=== PATIENT | male | born 1955 | race Caucasian/White ===

== ENCOUNTER 2018-05-29 05:57 | Inpatient (IN) | payer OTHER ==
[2018-05-29 06:56] LABS: BASO # 0.1 10^3/uL (0.0-0.2); BASO % 0.7 % (0.0-1.0); EOS # 0.4 10^3/uL (0.0-0.50); EOS % 4.9 % (0.0-3.0); HEMATOCRIT 46.7 % (42.0-52.0); IMMATURE GRANULOCYTE % 0.5 % (0-3.0); LYMPH # 2.2 10^3/uL (1.5-4.5); LYMPH % 25.9 % (24.0-44.0); MEAN CORPUSCULAR HEMOGLOBIN 30.7 pg (27.0-33.0); MEAN CORPUSCULAR HGB CONC 34.3 g/dl (32.0-36.5); MEAN CORPUSCULAR VOLUME 89.6 fl (80.0-96.0); MONO # 0.5 10^3/uL (0.0-0.8); MONO % 5.3 % (0.0-5.0); NEUTROPHILS # 5.4 10^3/uL (1.8-7.7); NEUTROPHILS % 62.7 % (36.0-66.0); PLATELET COUNT, AUTOMATED 359 10^3/uL (150-450); RED BLOOD COUNT 5.21 10^6/uL (4.30-6.10); RED CELL DISTRIBUTION WIDTH 12.4 % (11.5-14.5); WHITE BLOOD COUNT 8.7 10^3/uL (4.0-10.0)
[2018-05-29 07:08] LABS: INR 0.92; PARTIAL THROMBOPLASTIN TIME 29.7 SECONDS (25.4-37.6); PROTHROMBIN TIME 12.4 SECONDS (12.1-14.4)
[2018-05-29 07:26] LABS: ALBUMIN/GLOBULIN RATIO 1.29 (1.00-1.93); ALKALINE PHOSPHATASE 67 U/L (45-117); ALT/SGPT 21 U/L (12-78); ANION GAP 9 MEQ/L (8-16); AST/SGOT 18 U/L (7-37); BILIRUBIN,DIRECT 0.1 MG/DL (0.0-0.2); BILIRUBIN,TOTAL 0.4 MG/DL (0.2-1.0); BLOOD UREA NITROGEN 17 MG/DL (7-18); CALCIUM LEVEL 9.7 MG/DL (8.8-10.2); CARBON DIOXIDE LEVEL 28 MEQ/L (21-32); CHLORIDE LEVEL 104 MEQ/L (98-107); CPK CREATINE PHOSPHOKINASE 82 U/L (39-308); CREATININE FOR GFR 0.82 MG/DL (0.70-1.30); GLOMERULAR FILTRATION RATE > 60.0 (>49); GLUCOSE, FASTING 103 MG/DL (70-100); LIPASE 173 U/L (73-393); MB/CK RELATIVE INDEX 1.59 (< OR =4); POTASSIUM SERUM 4.6 MEQ/L (3.5-5.1); SODIUM LEVEL 141 MEQ/L (136-145); TOTAL PROTEIN 7.1 GM/DL (6.4-8.2); TROPONIN I 0.02 NG/ML (< 0.10)
[2018-05-29] MEDS: KETOROLAC 30 MG/ML VIAL (J1885) IV (07:33)
[2018-05-29] MEDS ORDERED: ISOVUE-370 76% 100ML VIAL (Q9967) As Ordered (07:49)
[2018-05-29] MEDS ORDERED: ONDANSETRON 4MG/2ML VIAL (J2405) IV ×2 (09:15→19:00)
[2018-05-29] MEDS: NS 1,000 ML IV (10:36)
[2018-05-29] MEDS: VANCOMYCIN HCL 1,000 MG, VIAL MATE ADAPTER 1 EACH in D5W 250 ML IV (15:07)
[2018-05-29] MEDS ORDERED: fentaNYL 100 MCG/2 ML INJECTION (J3010) As Ordered (15:48)
[2018-05-29] MEDS ORDERED: PROPOFOL 200 MG/20 ML VIAL As Ordered ×3 (15:48→18:12)
[2018-05-29] MEDS ORDERED: LIDOCAINE 2% INJ 100 MG/5 ML SDV (FOR ANES.) As Ordered (15:48)
[2018-05-29] MEDS ORDERED: MIDAZOLAM INJ 2 MG/2 ML VIAL (J2250) As Ordered (15:49)
[2018-05-29] MEDS: ISOVUE-300 61% 50ML VIAL (Q9967) As Ordered (16:35)
[2018-05-29] MEDS: LIDOCAINE 1% SDV INJ 30 ML VIAL As Ordered (16:50)
[2018-05-29] MEDS: BACITRACIN OINT 30GM As Ordered (18:14)
[2018-05-29] MEDS ORDERED: KETOROLAC 60 MG/2 ML VIAL (J1885) As Ordered (18:18)
[2018-05-29] MEDS ORDERED: ONDANSETRON 4MG/2ML VIAL (J2405) As Ordered (18:18)
[2018-05-29] MEDS ORDERED: fentaNYL 100 MCG/2 ML INJECTION (J3010) IV (19:00)
[2018-05-29] MEDS: LR 1,000 ML IV (19:00)
[2018-05-29] MEDS ORDERED: PERCOCET 5MG/325MG TAB PO (19:00)
[2018-05-29] MEDS: ASCORBIC ACID 250 MG TAB PO (19:44)
[2018-05-29] MEDS ORDERED: SLF 3 ML SYR IV (20:00)
[2018-05-29] MEDS: SLF 3 ML SYR IV (20:34)
[2018-05-30] MEDS: ACETAMINOPHEN TAB 650MG DOSE (2X325MG) PO (04:55)
[2018-05-30] MEDS: SLF 3 ML SYR IV ×2 (04:55→13:55)
[2018-05-30] MEDS: ASCORBIC ACID 250 MG TAB PO (08:21)
== END 2018-05-30 19:40 | disposition home or self-care (01) | DRG 242 ==
LOC: M ED 05:57 → M ED INP 09:02 → M ICU 13:17
PROC: 0JH636Z Insertion of Pacemaker, Dual Chamber into Chest Subcutaneous Tissue and Fascia, Percutaneous Approach (ICD-10-PCS; principal; 2018-05-29 16:00)
PROC: 02H63JZ Insertion of Pacemaker Lead into Right Atrium, Percutaneous Approach (ICD-10-PCS; 2018-05-29 16:00)
PROC: 02HK3JZ Insertion of Pacemaker Lead into Right Ventricle, Percutaneous Approach (ICD-10-PCS; 2018-05-29 16:00)
DX: I49.5 Sick sinus syndrome (principal); I46.9 Cardiac arrest, cause unspecified; Z87.891 Personal history of nicotine dependence; R55 Syncope and collapse; E78.00 Pure hypercholesterolemia, unspecified

== ENCOUNTER 2018-10-04 15:54 | Emergency (ER) | payer OTHER ==
[~2018-10-04] VITALS: Ht 175.3 cm; Wt 70.5 kg
[~2018-10-04 15:54] MED LIST changes: -ACET500T15 PO; -VITMTA PO
[2018-10-04] MEDS ORDERED: NS 1,000 ML IV ONE (16:45)
[2018-10-04] MEDS ORDERED: ISOVUE-370 76% 100ML VIAL (Q9967) As Ordered ONE (16:47)
[2018-10-04 17:51] LABS: HEMATOCRIT 39.6 % (42.0-52.0); MEAN CORPUSCULAR HEMOGLOBIN 30.2 pg (27.0-33.0); MEAN CORPUSCULAR HGB CONC 35.4 g/dl (32.0-36.5); MEAN CORPUSCULAR VOLUME 85.3 fl (80.0-96.0); PLATELET COUNT, AUTOMATED 110 10^3/uL (150-450); RED BLOOD COUNT 4.64 10^6/uL (4.30-6.10)
[2018-10-04 18:05] LABS: INR 1.18; PROTHROMBIN TIME 15.2 SECONDS (12.1-14.4)
[2018-10-04 18:15] LABS: ATYPICAL LYMPH 1 % (0-5); LYMPHOCYTES 2 % (16-52); METAMYELOCYTES 2 % (0-0); MONOCYTES 5 % (0-8); NEUTROPHILS 64 % (35-75); PLATELET ESTIMATE DECREASED (NORMAL); TOXIC GRANULATION 2+
[2018-10-04 18:17] LABS: TOXIC VACUOLATION 2+
[2018-10-04 18:20] LABS: AMYLASE 39 U/L (25-115); BLOOD UREA NITROGEN 23 MG/DL (7-18); CALCIUM LEVEL 8.3 MG/DL (8.8-10.2); CARBON DIOXIDE LEVEL 21 MEQ/L (21-32); CHLORIDE LEVEL 98 MEQ/L (98-107); CREATININE FOR GFR 1.11 MG/DL (0.70-1.30); GLOMERULAR FILTRATION RATE > 60.0 (>49); GLUCOSE, FASTING 128 MG/DL (70-100); POTASSIUM SERUM 4.1 MEQ/L (3.5-5.1); SODIUM LEVEL 131 MEQ/L (136-145)
--- NOTE | 2018-10-04 18:59 | REP ---
Clinical: Abdominal pain with elevated liver function tests. Technique: Axial contrast enhanced images from the lung bases to the pubic symphysis using 100 ml Isovue 370 intravenous contrast material with delayed images of the abdomen as well as coronal and sagittal re-formations. Findings: The sigmoid colon demonstrates mucosal thickening with diffuse diverticulosis and surrounding inflammatory stranding and mesenteric edema raising the possibility of acute sigmoid diverticulitis and correlation is recommended. Outpatient colonoscopy may be warranted as well to exclude further pathology including well malignancy. The liver demonstrates a somewhat heterogeneous enhancement pattern suggesting underlying hepatocellular disease without discrete, focal hepatic lesion identified. Spleen, pancreas, gallbladder, bilateral adrenal glands and kidneys are normal. There is no evidence for bowel obstruction. Pelvis demonstrates normal bladder and moderately prominent prostate/seminal vesicles. No ascites. No free air. No obvious adenopathy. Atherosclerotic changes of the aorta and vasculature without aneurysm or dissection. Musculoskeletal structures demonstrate degenerative changes. Lung bases are clear. Small fat containing periumbilical and left inguinal hernias noted. Impression: 1. Mucosal thickening of the sigmoid colon with diffuse diverticulosis and surrounding inflammatory stranding as well as mesenteric edema. Differential diagnosis includes diverticulitis and infectious/inflammatory colitis. Outpatient colonoscopy may be warranted to exclude further pathology including malignancy. 2. A subtle heterogeneous hepatic enhancement pattern raises the possibility of underlying hepatocellular disease without focal hepatic lesion identified. 3. Moderately enlarged prostate gland. 4. Small fat containing left inguinal hernia and 1.5 cm fat containing periumbilical hernia. 5. Atherosclerotic changes to the vasculature and arthritic changes to the lumbosacral spine and pelvis. Electronically Signed by Geovani Harvey MD 10/04/2018 06:50 P
[2018-10-04 19:28] VITALS: BP 119/71
[2018-10-06 09:38] LABS: HEPATITIS B SURFACE ANTIGEN NEGATIVE (NEGATIVE)
[2018-10-06 10:07] LABS: HEPATITIS B CORE ANTIBODY IGM NEGATIVE (NEGATIVE)
[2018-10-06 10:08] LABS: HEPATITIS A ANTIBODY IGM NEGATIVE (NEGATIVE)
== END 2018-10-04 19:37 | disposition home or self-care (01) ==
LOC: M ED 15:54
DX: K75.9 Inflammatory liver disease, unspecified (principal); I51.9 Heart disease, unspecified; Z95.0 Presence of cardiac pacemaker; Z87.891 Personal history of nicotine dependence; Z79.899 Other long term (current) drug therapy
CPT/HCPCS: 74177; 80048; 82150; 85025; 85610; 86705; 86709; 86803; 87340; 96360; 96361; 99284; Q9967

== ENCOUNTER → 2018-10-04 | Outpatient (CLI) | payer OTHER ==
[~2018-10-04] MED LIST: ACET1TAB55 PO; ACET500T15 PO; ATOR1TAB21 PO; VITMTA PO
--- NOTE | 2018-10-04 12:46 | REP ---
Clinical: Abdominal pain. Technique: Two supine views of the abdomen and pelvis. Findings: Bowel gas pattern is nonspecific and without obstruction or perforation. No organomegaly. No abnormal calcifications. Skeletal structures demonstrate age-related degenerative changes and mild chronic dextroconvex scoliosis. Impression: Nonspecific abdominal radiographs. Electronically Signed by Geovani Harvey MD 10/04/2018 12:38 P
[2018-10-04 13:45] LABS: HEMOGLOBIN 14.5 g/dl (13.5-17.5); MEAN CORPUSCULAR HEMOGLOBIN 30.1 pg (27.0-33.0); MEAN CORPUSCULAR HGB CONC 34.5 g/dl (32.0-36.5); MEAN CORPUSCULAR VOLUME 87.3 fl (80.0-96.0); PLATELET COUNT, AUTOMATED 128 10^3/uL (150-450); RED BLOOD COUNT 4.81 10^6/uL (4.30-6.10); WHITE BLOOD COUNT 12.8 10^3/uL (4.0-10.0)
[2018-10-04 14:09] LABS: BILIRUBIN,TOTAL 3.3 MG/DL (0.2-1.0); CALCIUM LEVEL 8.4 MG/DL (8.8-10.2); CREATININE FOR GFR 1.39 MG/DL (0.70-1.30); GLOMERULAR FILTRATION RATE 55.1 (>49); POTASSIUM SERUM 3.6 MEQ/L (3.5-5.1)
[2018-10-04 14:17] LABS: ATYPICAL LYMPH 1 % (0-5); LYMPHOCYTES 1 % (16-52); METAMYELOCYTES 2 % (0-0); MONOCYTES 5 % (0-8); NEUTROPHILS 67 % (35-75); PLATELET ESTIMATE DECREASED (NORMAL)
[2018-10-04 14:18] LABS: DOHLE BODIES 1+; TOXIC GRANULATION 1+; TOXIC VACUOLATION 2+
[2018-10-06 08:32] LABS: ERYTHROCYTE SEDIMENTATION RATE 26 mm/hr (0-20)
== END ==
LOC: M WUC 12:07
PROVIDERS: ATTEND Physician Assistant
DX: R10.84 Generalized abdominal pain (principal)

== ENCOUNTER 2018-10-06 14:36 | Inpatient (IN) | payer OTHER ==
[~2018-10-06] VITALS: Ht 175.3 cm; Wt 70.5 kg
[~2018-10-06 14:36] MED LIST changes: -ACET500T15 PO; -CIPROFLOXACIN 400 MG in APPROPRIATE DILUENT 1 EA IV SCH; -D5W/0.9% SODIUM CHLORIDE 1,000 ML IV SCH; -NS 1,000 ML IV SCH; -VITMTA PO; -metroNIDAZOLE 500 MG in APPROPRIATE DILUENT 1 EA IV SCH
[2018-10-06] MEDS ORDERED: NS 1,000 ML IV ONE (15:45)
[2018-10-06 16:04] LABS: BASO % 0.2 % (0.0-1.0); EOS % 0.1 % (0.0-3.0); HEMATOCRIT 36.4 % (42.0-52.0); HEMOGLOBIN 12.8 g/dl (13.5-17.5); LYMPH # 0.9 10^3/uL (1.5-4.5); LYMPH % 6.6 % (24.0-44.0); MEAN CORPUSCULAR HEMOGLOBIN 29.8 pg (27.0-33.0); MEAN CORPUSCULAR HGB CONC 35.2 g/dl (32.0-36.5); MEAN CORPUSCULAR VOLUME 84.8 fl (80.0-96.0); MONO # 1.2 10^3/uL (0.0-0.8); MONO % 9.6 % (0.0-5.0); NEUTROPHILS # 10.6 10^3/uL (1.8-7.7); NEUTROPHILS % 82.1 % (36.0-66.0); RED BLOOD COUNT 4.29 10^6/uL (4.30-6.10); WHITE BLOOD COUNT 12.9 10^3/uL (4.0-10.0)
[2018-10-06 16:14] LABS: INR 1.04; PROTHROMBIN TIME 13.7 SECONDS (12.1-14.4)
[2018-10-06 16:15] LABS: PARTIAL THROMBOPLASTIN TIME 35.4 SECONDS (25.4-37.6)
[2018-10-06 16:25] LABS: PLATELET COUNT, AUTOMATED 77 10^3/uL (150-450)
[2018-10-06 16:26] LABS: ALBUMIN 2.5 GM/DL (3.2-5.2); ALT/SGPT 112 U/L (12-78); BILIRUBIN,DIRECT 1.8 MG/DL (0.0-0.2); BILIRUBIN,TOTAL 2.3 MG/DL (0.2-1.0); BLOOD UREA NITROGEN 13 MG/DL (7-18); CALCIUM LEVEL 7.9 MG/DL (8.8-10.2); CARBON DIOXIDE LEVEL 27 MEQ/L (21-32); CHLORIDE LEVEL 92 MEQ/L (98-107); CREATININE FOR GFR 0.81 MG/DL (0.70-1.30); GLOMERULAR FILTRATION RATE > 60.0 (>49); GLUCOSE, FASTING 116 MG/DL (70-100); POTASSIUM SERUM 3.4 MEQ/L (3.5-5.1); SODIUM LEVEL 129 MEQ/L (136-145); TOTAL PROTEIN 5.6 GM/DL (6.4-8.2)
[2018-10-06] MEDS ORDERED: ACETAMINOPHEN 325 MG TAB PO ONE (17:15)
[2018-10-06] MEDS: GASTROGRAFIN SOLUTION 30ML PO SCH ×2 (17:29→18:01)
[2018-10-06] MEDS: MORPHINE 4 MG/ML 1ML VIAL/SYRINGE (J2270) IV PRN (17:40)
[2018-10-06] MEDS ORDERED: ISOVUE-370 76% 100ML VIAL (Q9967) As Ordered ONE (18:42)
--- NOTE | 2018-10-06 19:36 | REP ---
Clinical: Abdominal pain. Technique: Axial contrast enhanced images from the lung bases to the pubic symphysis using oral (per protocol) and 100 ml Isovue 370 intravenous contrast material with coronal and sagittal re-formations. Comparison: 10/06/2018 at 12:50 p.m. and 10/04/2018 at 06:10 p.m.. Findings: Current examination again demonstrates mucosal thickening of the sigmoid colon with diffuse diverticulosis and pericolonic stranding consistent with acute diverticulitis. New findings include gas in the superior mesenteric vein at the level of the pancreas (images [id number]) with mild infiltration to the mesentery which may now represent an element of bowel infarction. No evidence for pneumoperitoneum to suggest perforation. No bowel obstruction. Liver has a subtle areas of low density suggesting heterogeneous enhancement which again may be related to portal venous gas and bowel infarction. Hepatomegaly is noted. Spleen, pancreas, gallbladder, bilateral adrenal glands and kidneys are normal. Pelvis demonstrates normal bladder. The prostate gland is enlarged. No ascites. Small fat containing inguinal hernias noted. Abdominal aorta demonstrates atherosclerotic changes without aneurysm or dissection. Musculoskeletal structures demonstrate degenerative changes. Lung bases demonstrate chronic bronchiectasis and fibroatelectatic changes. Impression: Continued evidence for sigmoid diverticulitis. Small amounts of portal venous gas are now identified in the superior mesenteric vein suggesting the possibility of associated bowel infarction and correlation is required. No free air to suggest perforation. No bowel obstruction. Electronically Signed by Geovani Harvey MD 10/06/2018 07:28 P
[2018-10-06] MEDS ORDERED: NS 1,000 ML IV SCH (20:00)
[2018-10-06] MEDS ORDERED: CIPROFLOXACIN 400 MG in APPROPRIATE DILUENT 1 EA IV ONE (20:00)
[2018-10-06] MEDS ORDERED: metroNIDAZOLE 500 MG in APPROPRIATE DILUENT 1 EA IV ONE (20:00)
[2018-10-06] MEDS ORDERED: ACET500T15 PO (20:10)
[2018-10-06] MEDS ORDERED: VITMTA PO (20:10)
[2018-10-06] MEDS ORDERED: ATOR1TAB21 PO (20:10)
[2018-10-06] MEDS ORDERED: ONDANSETRON 4MG/2ML VIAL (J2405) IV PRN (20:30)
[2018-10-06] MEDS ORDERED: ENOXAPARIN 40 MG/0.4 ML SYRINGE (J1650) SC SCH (21:00)
--- NOTE | 2018-10-06 22:15 | CR.PDOC ---
General Date of Consultation: Oct 06, 2018 Referring Provider: LAURA RUSSO DO Consultation REASON FOR CONSULTATION medical management. HISTORY OF PRESENT ILLNESS: Patient is a 63-year-old man with medical history of sick sinus syndrome diagnosed recently June 2018 following syncope and also he is now status post pacemaker placement. Consult is for medical management. Patient is currently being admitted to the surgical unit on account of suspicious finding on abdominal x-ray and CT abdomen which reveals small amount of portal venous gas identified in the superior mesenteric vein suggesting possible bowel infarction unlikely bowel perforation. Patient dates abdominal pain 5 days ago. He presented in the emergency room on the and had an abdominal x-ray unrevealing was discharged with antibiotics for colitis. He reports today and again in the emergency room with same abdominal pains but for further workup for inconclusive x-ray of the abdomen that was done on the . CT scan did show acute diverticulitis. Patient refers subjective fevers and chills. No nausea no vomiting. No chest pain or palpitations. No repeat episodes of syncope or near-syncope. No dizziness, no cough, no shortness of breath. No change in his urinary habits. He also denies any night sweats, weight loss, no undue lower extremity swellings or pains. Patient was advised to discontinue atorvastatin due to elevated hepatic enzymes. ALLERGIES: Please see below. HOME MEDICATIONS: Please see below. PAST MEDICAL HISTORY: 1. Sick sinus syndrome. PAST SURGICAL HISTORY: 1. Pacemaker placement June 2018. 2. Surgical repair bilateral ankles. 3. Surgical repair bilateral knees FAMILY HISTORY: Heart disease and stroke runs in the family. 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 Occasional alcohol. Denies illicit drug use REVIEW OF SYSTEMS: No weight loss. No headaches. No change in urinary habits. No nausea no vomiting. No chest pain, no palpitations, no dizziness, no syncope or near- syncope. No cough or shortness of breath other than abdominal pains. Other sys tems reviewed, -12 point review of system was done. PHYSICAL EXAMINATION: VITAL SIGNS: Please see below. GENERAL APPEARANCE: Middle aged man, lying calmly in bed, not in any apparent distress. He is not pale, anicteric and afebrile HEENT: Atraumatic. Neck: Supple. LUNGS: Clear to auscultation bilaterally. CARDIOVASCULAR: S1 and 2 heard, no murmurs, rubs or gallops. ABDOMEN: Obese, Mildly tense, not tender (feels internal soreness), Mildly distended. Bowel sounds normoactive. MUSCULOSKELETAL: Apparently within normal limits. EXTREMITIES: No pedal edema, 2+ bilateral pedal pulses noted. NEUROLOGICAL: Awake, alert, oriented 3. PSYCHIATRIC: Normal affect LABORATORY DATA: Please see below. EKG: Normal sinus rhythm, no acute ST or T wave noted. ASSESSMENT/PLAN: 1. Abdominal pains. 2. Sick sinus syndrome. RECOMMENDATIONS: 1. Abdominal pains: Likely secondary to acute colitis, but of course keeping in view possibility of bowel infarction with unusual gas pattern in the superior mesenteric vein. Also transaminitis s/p d/c statin, pending LFTs. Patient may continue with Ciprofloxacillin and Flagyl. He also does appear to have hyponatremia, which may have resulted from poor oral intake. This should improve with volume expansion normal saline to run at 50-75 mils per hour. Reevaluate patient's volume status and needs in the morning and follow with daily BMPs. LFTs result pending, We'll follow. 2. Sick sinus syndrome with pacemaker placement. EKG reviewed as normal sinus rhythm. Patient appears hemodynamically stable at this time. However, should he require surgery, I would suggest consulting cardiology for optimization. 3. Thank you for this opportunity taking care of the patient. 4. Medicine will follow with you. Vital Signs/I&O Vital Signs Date Time Temp Pulse Resp B/P (MAP) Pulse Ox O2 Delivery O2 Flow Rate FiO2 10/06/18 21:30 99.0 109 24 141/77 (98) 96 Room Air Laboratory Data Labs 24H Laboratory Tests 2 10/06/18 15:33: Urine Color [place], Urine Appearance CLEAR, Urine pH 5.0, Urine Specific [place] 1.023, Urine Protein 2+H, Urine Glucose (UA) NEGATIVE, Urine Ketones TRACEH, Urine Blood 2+H, Urine Nitrite NEGATIVE, Urine Bilirubin 1+H, Urine Urobilinogen 4.0H, Urine Leukocyte Esterase NEGATIVE, Urine WBC (Auto) 2, Urine RBC (Auto) 3, Urine Hyaline Casts (Auto) 0, Urine Bacteria (Auto) NEGATIVE, Urine Squamous Epithelial Cells 0, Urine Mucus (Auto) SMALL, Urine Sperm (Auto) 10/06/18 15:39: Immature Granulocyte % (Auto) 1.4, White Blood Count 12.9H, Red Blood Count 4.29L, Hemoglobin 12.8L, Hematocrit 36.4L, Mean Corpuscular Volume 84.8, Mean Corpuscular Hemoglobin 29.8, Mean Corpuscular Hemoglobin Concent 35.2, Red Cell Distribution Width 13.4, Platelet Count 77L, Neutrophils (%) (Auto) 82.1H, Lymphocytes (%) (Auto) 6.6L, Monocytes (%) (Auto) 9.6H, Eosinophils (%) (Auto) 0.1, Basophils (%) (Auto) 0.2, Neutrophils # (Auto) 10.6H, Lymphocytes # (Auto) 0.9L, Monocytes # (Auto) 1.2H, Eosinophils # (Auto) 0.0, Basophils # (Auto) 0.0, Nucleated Red Blood Cells % (auto) 0.0, Immature Platelet Fraction 6.2, Prothrombin Time 13.7, Prothromb Time International Ratio 1.04, Activated Partial Thromboplast Time 35.4, Anion Gap 10, Glomerular Filtration Rate > 60.0, Lactic Acid Level 1.0, Calcium Level 7.9L, Aspartate Amino Transf (AST/SGOT) 104H, Alanine Aminotransferase (ALT/SGPT) 112H, Alkaline Phosphatase 260H, Total Bilirubin 2.3H, Direct Bilirubin 1.8H, Total Protein 5.6L, Albumin 2.5L, Albumin/Globulin Ratio 0.81L CBC/BMP Laboratory Tests 10/06/18 15:39 Red Blood Count 4.29 L, Mean Corpuscular Volume 84.8, Mean Corpuscular Hemoglobin 29.8, Mean Corpuscular Hemoglobin Concent 35.2, Red Cell Distribution Width 13.4, Neutrophils (%) (Auto) 82.1 H, Lymphocytes (%) (Auto) 6.6 L, Monocytes (%) (Auto) 9.6 H, Eosinophils (%) (Auto) 0.1, Basophils (%) (Auto) 0.2, Neutrophils # (Auto) 10.6 H, Lymphocytes # (Auto) 0.9 L, Monocytes # (Auto) 1.2 H, Eosinophils # (Auto) 0.0, Basophils # (Auto) 0.0 Microbiology Microbiology 10/06/18 Blood Culture, Received Pending 10/06/18 Blood Culture, Received Pending Allergies Coded Allergies: Penicillins (Verified Allergy, Unknown, 10/06/18) RASH Tetracycline (Verified Allergy, Unknown, 10/06/18) RASH Home Medications Scheduled Atorvastatin Calcium (Atorvastatin Calcium) 20 Mg Tab, 20 MG PO DAILY, (Reported) ON HOLD PER Multivitamins *[facility] STOCKED* (Thera M Plus *[facility] STOCKED*) 1 Tab Tab, 1 TAB PO DAILY, (Reported) Scheduled PRN Acetaminophen (Acetaminophen) 500 Mg Tab, 500 MG PO Q6H PRN for PAIN, (Reported) DOMINGO REICH MD Oct 06, 2018 22:15
[2018-10-06 22:25] VITALS: BP 130/71
[2018-10-06] MEDS: SENOKOT S TAB PO SCH (23:21)
[2018-10-06] MEDS: ACETAMINOPHEN TAB 650MG DOSE (2X325MG) PO PRN (23:22)
[2018-10-06] MEDS: PANTOPRAZOLE 40MG INJ (PROTONIX) (C9113) IV SCH (23:22)
[2018-10-06] MEDS: KCL 20MEQ IN D5/0.45NS 1000ML 1,000 ML IV SCH (23:58)
[2018-10-07 02:00] VITALS: BP 107/66
[2018-10-07] MEDS: metroNIDAZOLE 500 MG in APPROPRIATE DILUENT 1 EA IV SCH ×3 (02:07→14:08)
[2018-10-07] MEDS: ACETAMINOPHEN TAB 650MG DOSE (2X325MG) PO PRN ×2 (04:06→14:08)
[2018-10-07 05:05] VITALS: BP 108/59
[2018-10-07 06:00] VITALS: BP 102/59
[2018-10-07 06:17] LABS: HEMOGLOBIN 11.4 g/dl (13.5-17.5); MEAN CORPUSCULAR HEMOGLOBIN 29.5 pg (27.0-33.0); MEAN CORPUSCULAR HGB CONC 35.6 g/dl (32.0-36.5); MEAN CORPUSCULAR VOLUME 82.9 fl (80.0-96.0); RED BLOOD COUNT 3.86 10^6/uL (4.30-6.10); WHITE BLOOD COUNT 8.6 10^3/uL (4.0-10.0)
[2018-10-07 06:18] LABS: PLATELET COUNT, AUTOMATED 77 10^3/uL (150-450)
[2018-10-07 06:38] LABS: ALT/SGPT 116 U/L (12-78); BLOOD UREA NITROGEN 11 MG/DL (7-18); CALCIUM LEVEL 7.4 MG/DL (8.8-10.2); CARBON DIOXIDE LEVEL 25 MEQ/L (21-32); CHLORIDE LEVEL 99 MEQ/L (98-107); GLOMERULAR FILTRATION RATE > 60.0 (>49); GLUCOSE, FASTING 139 MG/DL (70-100); LIPASE 106 U/L (73-393); POTASSIUM SERUM 3.1 MEQ/L (3.5-5.1); SODIUM LEVEL 132 MEQ/L (136-145); TOTAL PROTEIN 5.4 GM/DL (6.4-8.2)
[2018-10-07 06:51] LABS: LYMPHOCYTES 3 % (16-52); MONOCYTES 5 % (0-8); NEUTROPHILS 91 % (35-75); PLATELET ESTIMATE DECREASED (NORMAL)
[2018-10-07 06:52] LABS: TOXIC GRANULATION 1+
[2018-10-07] MEDS ORDERED: CIPROFLOXACIN 400 MG in APPROPRIATE DILUENT 1 EA IV SCH (09:00)
[2018-10-07] MEDS: KCL 20MEQ IN D5/0.45NS 1000ML 1,000 ML IV SCH ×3 (09:18→22:03)
[2018-10-07] MEDS: SENOKOT S TAB PO SCH ×2 (09:18→22:03)
[2018-10-07] MEDS: KETOROLAC 30 MG/ML VIAL (J1885) IV PRN (09:27)
--- NOTE | 2018-10-07 12:45 | IPNPDOC ---
Text Note Date of Service The patient was seen on 10/07/18. NOTE Subjective: Patient is a 63 year old male with a PMHx of SSS s/p PM (06/2018), who presented to the ER after he had an abnormal CT abdomen for abdominal pain he experienced last week (~ 5 days). Patient was admitted to the surgical service for suspected ischemic colitis. Hospitalist were called on consult. Patient was seen and examined at the bedside. Patient denies any abdominal pain, nausea, vomiting, diarrhea, constipation, or discomfort with urination. Denies chest pain, shortness of breath or palpitations. Objective: Vitals (See below) General: Lying in bed, no acute distress, comfortable, AAOx3 HEENT: NC, AT CVS: RRR, +S1S2 Lungs: Fair air entry b/l, -w/r/r Abdomen: Soft, ND, NT, +BSx4 Extremities: - Edema, - Calf tenderness Assessment and plan: Recent history of abdominal pain / fever / chills - likely 2/2 intra-abdominal source of infection - possibly 2/2 diverticulitis / infectious colitis - Patient reported that he sprints, abdominal pain for last 5 days of last week - Physical currently does not reveal any abdominal tenderness - s/p Leukocytosis, No lactic acidosis - Blood cultures 10/06: Gram negative rods - CT abdomen / pelvis 10/06: Continued evidence for sigmoid diverticulitis. Small amounts of portal venous gas are now identified in the superior mesenteric vein suggesting the possibility of associated bowel infarction and correlation is required. No free air to suggest perforation. No bowel obstruction. - c/w Ciprofloxacin / Flagyl (Day #2) and IV fluid hydration Gram negative bacteremia - See above Elevated Bilirubin / AST / ALT - Hepatitis profile (10/04/18) negative - s/p Statin - Will consider US abdomen Hyponatremia (mild) - likely 2/2 hypotonic hypovolemic - Will c/w IV fluid hydration Hypokalemia - Will supplement SSS s/p PM GI prophylaxis - c/w Protonix DVT prophylaxis - c/w Lovenox VS,Fishbone, I+O VS, Fishbone, I+O Laboratory Tests 10/06/18 15:39 Red Blood Count 4.29 L, Mean Corpuscular Volume 84.8, Mean Corpuscular Hemoglobin 29.8, Mean Corpuscular Hemoglobin Concent 35.2, Red Cell Distribution Width 13.4, Neutrophils (%) (Auto) 82.1 H, Lymphocytes (%) (Auto) 6.6 L, Monoc ytes (%) (Auto) 9.6 H, Eosinophils (%) (Auto) 0.1, Basophils (%) (Auto) 0.2, Neutrophils # (Auto) 10.6 H, Lymphocytes # (Auto) 0.9 L, Monocytes # (Auto) 1.2 H, Eosinophils # (Auto) 0.0, Basophils # (Auto) 0.0 10/07/18 05:28 Red Blood Count 3.86 L, Mean Corpuscular Volume 82.9, Mean Corpuscular Hemoglobin 29.5, Mean Corpuscular Hemoglobin Concent 35.6, Red Cell Distribution Width 13.6, Calcium Level 7.4 L, Aspartate Amino Transf (AST/SGOT) 126 H, Alanine Aminotransferase (ALT/SGPT) 116 H, Alkaline Phosphatase 237 H, Total Bilirubin 3.0 H, Total Protein 5.4 L, Albumin 2.0 L Vital Signs Date Time Temp Pulse Resp B/P (MAP) Pulse Ox O2 Delivery O2 Flow Rate FiO2 10/07/18 06:00 100.5 87 18 102/59 (73) 91 Room Air I&O- Last 24 Hours up to 6 AM 10/07/18 06:00 Intake Total 2145 ml Output Total 700 ml Balance 1445 ml SY NIELSEN MD Oct 07, 2018 12:45
[2018-10-07] MEDS: MORPHINE 4 MG/ML 1ML VIAL/SYRINGE (J2270) IV PRN (12:49)
[2018-10-07 14:00] VITALS: BP 121/63
[2018-10-07 14:01] VITALS: BP 131/65
--- NOTE | 2018-10-07 14:27 | REP ---
Right upper quadrant sonography: History: Elevated liver enzymes. Right upper quadrant pain. Recent CT studies demonstrate evidence of portal venous air. Findings: Scanning through right upper quadrant of the abdomen demonstrates gallbladder wall thickening with intramural gallbladder wall fluid. Gallbladder wall measures up to 0.8 cm in thickness. Common bile duct is normal measuring 0.4 cm. No focal liver mass lesion is seen. There are foci of increased echogenicity in the liver parenchyma suggesting tiny air bubbles which corresponds with the CT. There is an irregular thrombus visible in the portal splenic venous confluens consistent with proximal superior mesenteric vein thrombosis. There are a tiny bubbles of air at this level in the portal vein as well. This corresponds with the CT finding. There is no evidence of diffuse ascites. No pancreatic mass or cyst is appreciated. There is no evidence of hydronephrosis or right renal abnormality. The right kidney measures 11.6 x 4.7 x 5.1 cm. Impression: Proximal superior mesenteric venous thrombus and air bubbles at the patria splenic venous confluence; question septic superior mesenteric venous thrombosis, rule out bowel wall infarction. Gallbladder wall thickening is also noted sonographically. No stones seen. Normal CBD. Electronically Signed by Jared Gray MD 10/07/2018 03:38 P
[2018-10-07] MEDS ORDERED: HEPARIN SOD (PORCINE) 5000 UNITS/ML VIAL IV ONE (18:00)
[2018-10-07] MEDS: MEROPENEM INJ 1 GM in APPROPRIATE DILUENT 1 EA IV SCH (18:18)
[2018-10-07] MEDS: HEPARIN DRIP 25,000 UNITS in APPROPRIATE DILUENT 1 EA IV SCH (18:36)
[2018-10-07] MEDS ORDERED: HEPARIN SOD (PORCINE) 5000 UNITS/ML VIAL IV PRN (20:00)
--- NOTE | 2018-10-07 21:08 | ECGEPIP ---
Stationary ECG Study [facility] - ED Test Date: 2018-10-06 Pat Name: ALESSANDRO GUDINO Department: Room: - Gender: M Mail Inserter: brittny : 1955 Requested By: ALIZA SNOW PA-C Order Number: [id number] Reading MD: aDt Poon Measurements Intervals Creole Rate: 89 P: 36 WI: 163 QRS: 6 QRSD: 103 T: 27 QT: 365 QTc: 445 Interpretive Statements SINUS RHYTHM POOR R WAVE PROGRESSION SIMILAR TO 05/29/18 Electronically Signed On 10-07-2018 21:08:15 EST by Dat Poon
[2018-10-07 22:00] VITALS: BP 131/78
[2018-10-07] MEDS: PANTOPRAZOLE 40MG INJ (PROTONIX) (C9113) IV SCH (22:03)
[2018-10-08] VITALS (7 sets, daily range): BP systolic 11–140; BP diastolic 59–70
[2018-10-08] MEDS: MEROPENEM INJ 1 GM in APPROPRIATE DILUENT 1 EA IV SCH ×3 (02:43→17:29)
[2018-10-08] MEDS: ACETAMINOPHEN TAB 650MG DOSE (2X325MG) PO PRN ×2 (05:50→18:42)
[2018-10-08 07:12] LABS: HEMATOCRIT 32.7 % (42.0-52.0); HEMOGLOBIN 11.4 g/dl (13.5-17.5); MEAN CORPUSCULAR HEMOGLOBIN 29.6 pg (27.0-33.0); MEAN CORPUSCULAR HGB CONC 34.9 g/dl (32.0-36.5); MEAN CORPUSCULAR VOLUME 84.9 fl (80.0-96.0); PLATELET COUNT, AUTOMATED 132 10^3/uL (150-450); RED BLOOD COUNT 3.85 10^6/uL (4.30-6.10); WHITE BLOOD COUNT 13.9 10^3/uL (4.0-10.0)
[2018-10-08] MEDS: KCL 20MEQ IN D5/0.45NS 1000ML 1,000 ML IV SCH (07:13)
[2018-10-08 07:38] LABS: ALBUMIN 1.8 GM/DL (3.2-5.2); ALT/SGPT 117 U/L (12-78); ATYPICAL LYMPH 1 % (0-5); BILIRUBIN,TOTAL 2.6 MG/DL (0.2-1.0); BLOOD UREA NITROGEN 9 MG/DL (7-18); CALCIUM LEVEL 7.5 MG/DL (8.8-10.2); CARBON DIOXIDE LEVEL 24 MEQ/L (21-32); CHLORIDE LEVEL 99 MEQ/L (98-107); EOSINOPHILS 1 % (0-5); GLOMERULAR FILTRATION RATE > 60.0 (>49); GLUCOSE, FASTING 146 MG/DL (70-100); LIPASE 112 U/L (73-393); LYMPHOCYTES 11 % (16-52); MONOCYTES 4 % (0-8); NEUTROPHILS 83 % (35-75); PLATELET ESTIMATE DECREASED (NORMAL); POTASSIUM SERUM 3.1 MEQ/L (3.5-5.1); SODIUM LEVEL 132 MEQ/L (136-145); TOTAL PROTEIN 5.4 GM/DL (6.4-8.2)
--- NOTE | 2018-10-08 08:05 | CR ---
INFECTION DISEASE CONSULTATION DATE OF CONSULTATION: 10/07/2018 Asked to consult by Dr. Lara for evaluation of gram-negative sepsis with abnormal liver function test. HISTORY OF PRESENT ILLNESS: Mr. Mccormack is a pleasant 63-year-old gentleman who presented with a 5-day history of vague abdominal pain associated with fever and rigors. This started about last week when he developed some nonspecific abdominal pain more so in the low back area with difficulty with bowel movements. The patient was sick for a couple days then went to the urgent care on October 04, was seen by Chance VALENTINO who recommended he goes to the emergency room. In the emergency room his liver functions tests were elevated. He had 25% bandemia. He had a CT which showed possibility of sigmoid diverticulitis with edema. The patient was diagnosed with hepatitis, discharged home, was told to stop his statin therapy. A couple of days later he a saw his primary care provider and had a followup CT and recommendation was to go to the hospital. He had blood cultures drawn in the emergency room (ER) which showed were positive for gram-negative bacteremia. CT of the abdomen was repeated. That was done with IV contrast. Continued sigmoid diverticulitis was seen, concern for a portal venous gas was identified in the superior mesenteric vein concerning for bowel infarction. A abdominal ultrasound was done with IV contrast showing proximal superior mesenteric venous thrombosis and air bubbles at the patria splenic venous a gallbladder confluence rule out bowel wall infarction, gallbladder wall thickening was also noted with a gallbladder wall of 0.8 cm. The patient today was seen at 6:00 p.m., he was complaining of low back pain and right hip pain which was mostly concerning he has difficulty stepping on his foot with shooting pain. He continues with fever and rigors. She has no nausea or vomiting. He did have two episodes of vomiting at home but that has resolved. Does not have diarrhea or blood in the stools. PAST MEDICAL HISTORY: Significant for sick sinus syndrome status post pacemaker placement May 2018, hypercholesteremia. ALLERGIES: PENICILLIN with vague rash in 1969, TETRACYCLINE. MEDICATIONS: He was initially on Cipro, Flagyl, which was switched to meropenem 1 gram IV every 8 hours tonight. Protonix 40 mg IV every 24 hours. Senokot one tablet by mouth twice a day. LABORATORY DATA: White count yesterday was 12.9, hemoglobin 12.8, hematocrit 36.4, platelets 77 down from 120, 82% neutrophils, 6% lymphocytes, 9% monocytes. On October 04 patient's white count was 12.8 with 24% bands. Blood cultures drawn on 10/06 two sets done 30 minutes apart have gram-negative rods. Urine culture final on October 04 was negative. October 07 two more sets of blood cultures are pending. PHYSICAL EXAMINATION: On physical exam he is a sick looking gentleman in moderate discomfort. T max today was 101.3, currently 98.7, pulse 80, respirations 20, blood pressure 131/65, O2 sat 95% on room air. Heart: Normal S1-S2. No murmurs, rubs or gallops appreciated. Lungs are clear. No wheezes or rhonchi. Abdomen is soft, nontender. No hepatosplenomegaly. Back: No CVA tenderness. No lumbosacral tenderness. He definitely has some right sacroiliac tenderness. Hip range of motion is normal. Extremities: No clubbing, cyanosis, or edema. No rashes. No calf tenderness. Neurologic: Exam normal. LABS: Sodium 132, potassium 3.1, chloride 99, bicarb 25, BUN 11, creatinine 0.8, glucose 139, calcium 7.4, bilirubin 3, AST 126, ALT 116, alkaline phosphatase 237, albumin 5.4, PT 13.7, PTT 35.4. Hepatitis A, B, and C were all negative. IMPRESSION: This is 63-year-old gentleman who was admitted with a gastrointestinal (GI) illness that started with nonspecific abdominal pain, low back pain, constipation, a couple episodes of vomiting diagnosed with acute sigmoid diverticulitis by CT complicated by mesenteric vein thrombosis. The patient has gram negative bacteremia. He has abnormal liver function tests suggestive of acute cholangitis but there is no evidence of obstruction or common bile duct dilatation. He has gallbladder wall thickening with edema which may be suggestive of acalculous cholecystitis with superior vein thrombosis concerning for bowel infarction. The patient is very uncomfortable especially with his right hip pain although clinically there is no evidence of septic joint. He definitely has sacroiliac tenderness with pain radiating to his right testicle and medial thigh. He was treated initially withCipro, Flagyl, but currently on IV meropenem which is more appropriate coverage as 20% of E-coli resistant to quinolones. PLAN: Continue IV meropenem 1 gram every 8 hours. Consult GI. The patient may have acute cholangitis versus acalculous cholecystitis versus sigmoid diverticulitis complicated by venous thrombosis infarction. IV heparin has been started along with appropriate antibiotics. Would consider obtaining MRI of the abdomen to better delineate the picture and MRCP if his pacemaker is compatible. Case has been discussed with Dr. Bai, resident and Dr. Liana Lara as well as his who is at the bedside. AYDEN
[2018-10-08] MEDS: MORPHINE 4 MG/ML 1ML VIAL/SYRINGE (J2270) IV PRN ×2 (08:20→14:27)
[2018-10-08] MEDS: SENOKOT S TAB PO SCH ×2 (08:25→21:35)
[2018-10-08] MEDS: HEPARIN DRIP 25,000 UNITS in APPROPRIATE DILUENT 1 EA IV SCH (08:40)
[2018-10-08] MEDS ORDERED: POTASSIUM CHLORIDE 10 MEQ SR TABLET PO ONE ×2 (09:00→09:45)
--- NOTE | 2018-10-08 12:35 | REP ---
PORTABLE CHEST: AP portable view of the chest is performed and compared to a prior study of 05/30/2018. There is mild linear fibroatelectatic change in each lung base. No acute infiltrate or pulmonary edema is seen. The heart is not significantly enlarged. There is mild calcification and tortuosity of the thoracic aorta. Mediastinal silhouette is unchanged. There is a left dual-lead pacemaker unchanged. There are degenerative changes of the spine. There is mild elevation of the right hemidiaphragm, which is stable. IMPRESSION: Mild bibasilar fibroatelectatic change without evidence of acute infiltrate or pulmonary edema. Electronically Signed by Jeremiah Feliciano MD 10/09/2018 10:42 A
--- NOTE | 2018-10-08 13:57 | IPNPDOC ---
Text Note Date of Service The patient was seen on 10/08/18. NOTE Subjective: Patient is a 63 year old male with a PMHx of SSS s/p PM (06/2018), who presented to the ER after he had an abnormal CT abdomen for abdominal pain he experienced last week (~ 5 days). Patient was admitted to the surgical service for suspected ischemic colitis. Hospitalist were called on consult. Patient was seen and examined at the bedside. Again. Patient denies any abdominal pain, nausea, vomiting, diarrhea or constipation. They do note that they've had a bowel movement this morning that was dark, described as watery. Patient denies any chest pain, short of breath or palpitations. Objective: Vitals (See below) General: Lying in bed, no acute distress, comfortable, AAOx3 HEENT: NC, AT CVS: RRR, +S1S2 Lungs: Fair air entry b/l, no wheezing or rhonchi; there does appear to be crackles at bilateral lung bases Abdomen: Soft, does not reveal any tenderness. Appears mildly distended Extremities: No evidence of LE edema, - Calf tenderness Assessment and plan: Recent history of abdominal pain / fever / chills - likely 2/2 intra-abdominal source of infection - possibly 2/2 diverticulitis / infectious colitis - Patient reported that he sprints, abdominal pain for last 5 days of last week - Physical currently does not reveal any abdominal tenderness - s/p Leukocytosis, No lactic acidosis - Blood cultures 10/06: Gram negative rods (culture preliminary), Blood cultures 10/07: No growth at 24 hours - CT abdomen / pelvis 10/06: Continued evidence for sigmoid diverticulitis. S mall amounts of portal venous gas are now identified in the superior mesenteric vein suggesting the possibility of associated bowel infarction and correlation is required. No free air to suggest perforation. No bowel obstruction. - c/w Meropenem (Day #2); s/p Ciprofloxacin / Flagyl (Received 2 days only) and IV fluid hydration Gram negative bacteremia - See above Elevated Bilirubin / AST / ALT - possibly 2/2 hepatic engorgement 2/2 poor - Hepatitis profile (10/04/18) negative - s/p Statin Crackles at b/l lung bases - likely 2/2 atelectasis, less likely 2/2 fluid overload - Patient denies any significant shortness of breath - CXR 10/08: Mild bibasilar fibroatelectatic change without evidence of acute infiltrate or pulmonary edema. - Will start incentive spirometry Hyponatremia (mild) - likely 2/2 hypotonic hypovolemic - Will c/w IV fluid hydration; will increase rate Hypokalemia - Will supplement again SSS s/p PM GI prophylaxis - c/w Protonix DVT prophylaxis - c/w Lovenox VS,Fishbone, I+O VS, Fishbone, I+O Laboratory Tests 10/08/18 06:41 Red Blood Count 3.85 L, Mean Corpuscular Volume 84.9, Mean Corpuscular Hemoglobin 29.6, Mean Corpuscular Hemoglobin Concent 34.9, Red Cell Distribution Width 13.8, Calcium Level 7.5 L, Aspartate Amino Transf (AST/SGOT) 115 H, Alanine Aminotransferase (ALT/SGPT) 117 H, Alkaline Phosphatase 255 H, Total Bilirubin 2.6 H, Total Protein 5.4 L, Albumin 1.8 L Vital Signs Date Time Temp Pulse Resp B/P (MAP) Pulse Ox O2 Delivery O2 Flow Rate FiO2 10/08/18 10:00 98.8 69 18 127/59 (81) 96 10/07/18 14:01 Room Air 10/07/18 14:00 98.0 I&O- Last 24 Hours up to 6 AM 10/08/18 06:00 Intake Total 2885 ml Output Total 600 ml Balance 2285 ml SY NIELSEN MD Oct 08, 2018 13:57
--- NOTE | 2018-10-08 14:01 | IPNPDOC ---
Text Note Date of Service The patient was seen on 10/08/18. NOTE No acute events overnight. He is still having fevers, and has some increased abd distention today and some right flank pain again. He did ave a couple loose BMs overnight, but no abd pains, and no blood in his stool. Denies nausea, emesis, shortness of breath. I explained to him that I am concerned about the fevers, and thrombus spreading. I recommended that we discuss transfer. He is in agreement, but I am unable to get him to [facility], or [facility]. There are no beds available. Therefore, I have discussed his case with Dr. Lara, Dr. Kearney, and Dr. Leger. Consensus at this point is to continue with current management. He has no indication for surgical intervention at this time. Exploration would possibly result in sigmoidectomy and colostomy, but will not do anything to address portal thrombus. Surgery could also result in hypotension and potentially make the thrombus worse. VSSAF currently NAD abd - soft, NT, slightly distended today, no signs of peritonitis labs - below A) 63y/o male with complicate diverticulitis, and septic portal venous thrombus P)ice and water heparin drip ambulate abx recommend transfer, but there are no facilities nearby with any beds available. I have not had any success with [facility], or [place]. Waiting for bed to open up in [facility]. CT with venous phase contrast for the AM Oniel Bunn DO VS,Ron, I+O VS, Ron, I+O Laboratory Tests 10/08/18 06:41 Red Blood Count 3.85 L, Mean Corpuscular Volume 84.9, Mean Corpuscular Hemoglobin 29.6, Mean Corpuscular Hemoglobin Concent 34.9, Red Cell Distribution Width 13.8, Calcium Level 7.5 L, Aspartate Amino Transf (AST/SGOT) 115 H, Alanine Aminotransferase (ALT/SGPT) 117 H, Alkaline Phosphatase 255 H, Total Bilirubin 2.6 H, Total Protein 5.4 L, Albumin 1.8 L Vital Signs Date Time Temp Pulse Resp B/P (MAP) Pulse Ox O2 Delivery O2 Flow Rate FiO2 10/08/18 10:00 98.8 69 18 127/59 (81) 96 10/07/18 14:01 Room Air 10/07/18 14:00 98.0 I&O- Last 24 Hours up to 6 AM 10/08/18 06:00 Intake Total 2885 ml Output Total 600 ml Balance 2285 ml LAURA BUNN DO Oct 08, 2018 14:01
[2018-10-08] MEDS: KCL 40MEQ IN D5/NS 1000ML 1,000 ML IV SCH (15:51)
[2018-10-08] MEDS: PANTOPRAZOLE 40MG INJ (PROTONIX) (C9113) IV SCH (21:35)
[2018-10-09] MEDS: MORPHINE 4 MG/ML 1ML VIAL/SYRINGE (J2270) IV PRN ×2 (00:01→02:45)
[2018-10-09] MEDS: MEROPENEM INJ 1 GM in APPROPRIATE DILUENT 1 EA IV SCH ×3 (01:43→17:03)
[2018-10-09] MEDS: KCL 40MEQ IN D5/NS 1000ML 1,000 ML IV SCH ×4 (01:43→23:20)
[2018-10-09 02:00] VITALS: BP 130/63
[2018-10-09] MEDS: HEPARIN DRIP 25,000 UNITS in APPROPRIATE DILUENT 1 EA IV SCH ×2 (02:07→15:39)
[2018-10-09 06:00] VITALS: BP 145/81
[2018-10-09 06:06] LABS: BASO % 0.3 % (0.0-1.0); EOS # 0.2 10^3/uL (0.0-0.50); EOS % 1.1 % (0.0-3.0); HEMATOCRIT 33.7 % (42.0-52.0); HEMOGLOBIN 11.9 g/dl (13.5-17.5); LYMPH # 1.9 10^3/uL (1.5-4.5); LYMPH % 12.6 % (24.0-44.0); MEAN CORPUSCULAR HEMOGLOBIN 30.2 pg (27.0-33.0); MEAN CORPUSCULAR HGB CONC 35.3 g/dl (32.0-36.5); MEAN CORPUSCULAR VOLUME 85.5 fl (80.0-96.0); MONO # 1.2 10^3/uL (0.0-0.8); MONO % 8.2 % (0.0-5.0); NEUTROPHILS # 11.4 10^3/uL (1.8-7.7); NEUTROPHILS % 76.1 % (36.0-66.0); PLATELET COUNT, AUTOMATED 194 10^3/uL (150-450); RED BLOOD COUNT 3.94 10^6/uL (4.30-6.10)
[2018-10-09 06:40] LABS: ALBUMIN 1.8 GM/DL (3.2-5.2); ALT/SGPT 111 U/L (12-78); BILIRUBIN,TOTAL 1.9 MG/DL (0.2-1.0); BLOOD UREA NITROGEN 8 MG/DL (7-18); CALCIUM LEVEL 7.2 MG/DL (8.8-10.2); CARBON DIOXIDE LEVEL 26 MEQ/L (21-32); CHLORIDE LEVEL 106 MEQ/L (98-107); GLOMERULAR FILTRATION RATE > 60.0 (>49); GLUCOSE, FASTING 144 MG/DL (70-100); LIPASE 87 U/L (73-393); MAGNESIUM LEVEL 2.1 MG/DL (1.8-2.4); POTASSIUM SERUM 3.9 MEQ/L (3.5-5.1); SODIUM LEVEL 138 MEQ/L (136-145)
[2018-10-09] MEDS: ACETAMINOPHEN TAB 650MG DOSE (2X325MG) PO PRN (06:57)
[2018-10-09] MEDS: SENOKOT S TAB PO SCH ×2 (07:49→21:56)
[2018-10-09] MEDS ORDERED: ISOVUE-370 76% 100ML VIAL (Q9967) As Ordered ONE (08:00)
--- NOTE | 2018-10-09 08:58 | REP ---
Clinical: Portal vein thrombus. Technique: Axial contrast enhanced images of the abdomen and pelvis using 100 ml Isovue 370 intravenous contrast material along with delayed images of the abdomen and pelvis and coronal/sagittal re-formations. Comparison: 10/06/2018. Findings: Portal venous phase and delayed phase images of the abdomen and pelvis demonstrate nonocclusive thrombus within the main portal vein extending into the inferior mesenteric vein into the abdomen and pelvis with subtle surrounding perivenous inflammatory stranding leading to the sigmoid colon which demonstrates diverticulosis and continued mucosal thickening and pericolonic stranding consistent with the history of diverticulitis. The more proximal portion of the main portal vein leading into the liver as well as the hepatic segments, SMV and splenic vein demonstrate normal perfusion without thrombus. Current examination demonstrates no evidence for portal venous gas which was seen on prior examination and no evidence for pneumatosis. The remainder of the small and large bowel is grossly unremarkable and there is no evidence for obstruction or free air to suggest perforation. Portal venous phase images of the liver demonstrate geographic localized areas of decreased attenuation with delayed phase images demonstrating homogeneous enhancement suggesting some element of perfusion derangement likely related to the significant of nonocclusive thrombus in the portal vein. Spleen, pancreas, bilateral adrenal glands and kidneys are normal. Gallbladder demonstrates mild wall thickening which is nonspecific but warrants clinical correlation and possible ultrasound corroboration. Pelvis demonstrates normal bladder and mildly prominent prostate/seminal vesicles. Fat containing left inguinal and periumbilical hernias identified. Scattered presumed reactive adenopathy within the mesentery and retroperitoneum are nonspecific. No significant ascites. Atherosclerotic changes of the aorta and vasculature noted without aneurysm or dissection. Vena cava appears normal. Surrounding musculoskeletal structures demonstrate degenerative changes. Lung bases demonstrate small new pleural effusions and bibasilar atelectasis. Impression: 1. Nonocclusive thrombus in the midportion of the portal vein with suspected complete occlusion of the inferior mesenteric vein leading to the sigmoid colon which demonstrates known sigmoid diverticulitis and mucosal thickening with pericolonic stranding. Close clinical observation is recommended as ischemic bowel of the sigmoid requires consideration. There is no evidence for pneumatosis, portal venous gas, free air to suggest perforation or bowel obstruction. 2. Delayed images demonstrate appropriate homogeneous enhancement of the liver without evidence for abscess or focal abnormalities. The earlier phased geographic areas of decreased attenuation are likely due to perfusion abnormality from the above mentioned portal venous thrombosis. 3. Mild gallbladder wall thickening/trace pericholecystic fluid may warrant ultrasound corroboration. 4. New small pleural effusions and basilar atelectasis. Electronically Signed by Geovani Harvey MD 10/09/2018 08:49 A
--- NOTE | 2018-10-09 09:22 | IPNPDOC ---
Text Note Date of Service The patient was seen on 10/09/18. NOTE No acute events overnight. He is starting to feel better, and his back pain is improving. He is taking lots of water and ice and denies any problems with nausea or emesis. Denies SOB, chest pain. He is passing flatus, and has had a few bowel movements. VSSAF currently Still having fevers overnight. NAD abd - soft, NT, slightly distended today, no signs of peritonitis labs - below CT - No signs of portal venous gas, there is a non-obstructing portal vein thrombus with possible complete occlusion of the IMV. A) 63y/o male with complicated diverticulitis, and septic portal venous thrombus P)clq diet heparin drip ambulate abx ok to shower will continue with current management Waiting for bed to open up in [facility]. Oniel Bunn DO VS,Ron, I+O VS, Ron, I+O Laboratory Tests 10/09/18 05:51 Red Blood Count 3.94 L, Mean Corpuscular Volume 85.5, Mean Corpuscular Hemoglobin 30.2, Mean Corpuscular Hemoglobin Concent 35.3, Red Cell Distribution Width 14.6 H, Neutrophils (%) (Auto) 76.1 H, Lymphocytes (%) (Auto) 12.6 L, Monocytes (%) (Auto) 8.2 H, Eosinophils (%) (Auto) 1.1, Basophils (%) (Auto) 0.3, Neutrophils # (Auto) 11.4 H, Lymphocytes # (Auto) 1.9, Monocytes # (Auto) 1.2 H, Eosinophils # (Auto) 0.2, Basophils # (Auto) 0.0, Calcium Level 7.2 L, Aspartate Amino Transf (AST/SGOT) 112 H, Alanine Aminotransferase (ALT/SGPT) 111 H, Alkaline Phosphatase 266 H, Total Bilirubin 1.9 H, Total Protein 5.0 L, Albumin 1.8 L Vital Signs Date Time Temp Pulse Resp B/P (MAP) Pulse Ox O2 Delivery O2 Flow Rate FiO2 10/09/18 06:51 101.4 10/09/18 06:00 79 16 145/81 (102) 96 10/07/18 14:01 Room Air 10/07/18 14:00 98.0 I&O- Last 24 Hours up to 6 AM 10/09/18 06:00 Intake Total 3935 ml Output Total 1275 ml Balance 2660 ml LAURA BUNN DO Oct 09, 2018 09:22
[2018-10-09 10:00] VITALS: BP 129/60
--- NOTE | 2018-10-09 10:09 | HPE ---
DATE OF ADMISSION: 10/06/2018 CHIEF COMPLAINT: Abdominal pain. HISTORY OF PRESENT ILLNESS: The patient is a 63-year-old male who has had complaints of right flank pain with shooting pains going down his right groin and right thigh for about a week now. He was in the emergency room (ER) on the for these problems. Imaging was negative for anything abnormal, the only thing slightly abnormal was his liver function tests (LFTs). He was discharged home. He continued to have abdominal pains. Early in the morning on Saturday, he went to his primary. They ordered a CT noncontrast outpatient. They were looking for possible kidney stones. They ended up finding that he had some diverticulitis as well as some portal venous gas. Because of that he was sent to emergency room for evaluation. In the ER, they called me immediately to see what I recommended. I recommended CT with contrast. That was completed which again showed the portal venous gas and also showed the increasing diverticulitis. He was admitted into the hospital overnight. I came to see him in the morning. He was having fevers. Denies any chills. No nausea or vomiting. No problems with bowel movements. He denied any abdominal pain. His only complaint was the right flank pain extending down into the leg. He has never had any known diverticulosis or diverticulitis in the past. No history of prior colonoscopy either. Denies any unexplained weight loss. No family history of colon cancer or diseases. No other complaints other than the right flank pain. ALLERGIES: - PENICILLIN - TETRACYCLINE HOME MEDICATIONS: Please see medical record. SOCIAL HISTORY: Denies drug, alcohol or tobacco abuse. FAMILY HISTORY: Noncontributory. REVIEW OF SYSTEMS: Pertinent positives and negatives as stated in history of present illness (HPI). PHYSICAL EXAMINATION: General: Patient is alert and oriented times three. No acute distress. Vitals: Temperature 97, pulse 110, respirations 16, blood pressure 159/71, pulse oximetry 98% room air. HEENT: Pupils equally round and react to light and accommodation. Heart: S1 and S2, regular rate and rhythm. Lungs: Clear to auscultation bilaterally. Abdomen: Soft, nontender, nondistended. Slight reducible umbilical hernia. Extremities: No clubbing, cyanosis or edema. LABS ON ADMISSION: White count 12.9, hemoglobin 12.8, platelets 77, lactic acid 1. His LFTs were elevated with total bilirubin 2.3, direct bilirubin 1.8, AST 104, ALT 112 and alkaline phosphatase 260. IMAGING STUDIES: CT of abdomen and pelvis showed sigmoid diverticulitis, small amounts portal venous gas in the superior mesenteric vein suggesting possibility of bowel infarction and correlation required, no free air to suggest perforation, no signs of bowel obstruction. ASSESSMENT/PLAN: The patient is a 63-year-old male with complicated diverticulitis that likely has resulted in bacteremia which is identified by the portal venous gas. The patient has zero abdominal pain. No signs to indicate that he needs any emergent operation. There are no signs of ischemia. No pain out of proportion. This is likely a result of his diverticulitis. Recommendation at this time is to treat medically. We will keep him nothing by mouth (n.p.o.) IV fluids. Antibiotics. I had them order blood cultures prior to starting antibiotics as this is most likely going to be positive for some sort of bacteremia. Once those culture results return, we will able to tailor down his antibiotics as needed. We have also recommended colonoscopy as an outpatient to make sure that this is truly diverticulosis and not colon cancer masking itself as diverticulitis. I explained that in detail to him. He understands and agrees. We will continue to treat him medically and will monitor for any changes.
--- NOTE | 2018-10-09 11:01 | IPNPDOC ---
Text Note Date of Service The patient was seen on 10/09/18. NOTE Subjective: Patient is a 63 year old male with a PMHx of SSS s/p PM (06/2018), who presented to the ER after he had an abnormal CT abdomen for abdominal pain he experienced last week (~ 5 days). Patient was admitted to the surgical service for suspected ischemic colitis. Hospitalist were called on consult. Patient was seen and examined at the bedside. Patient has no new complaints this morning. Denies any N/V, abdominal pain, C/D. Denies any discomfort with urination. Denies any CP, SOB or palpitations. Objective: Vitals (See below) General: Lying in bed, no acute distress, comfortable, AAOx3 HEENT: NC, AT CVS: RRR, +S1S2 Lungs: Fair air entry b/l, mild crackles again at bases bilaterally, no rhonchi / wheezing Abdomen: Soft, non-tender, mild distention Extremities: No evidence of LE edema, - Calf tenderness Assessment and plan: Recent history of abdominal pain / fever / chills - likely 2/2 intra-abdominal source of infection - possibly 2/2 diverticulitis / infectious colitis - Patient reported that he sprints, abdominal pain for last 5 days of last week - Physical currently does not reveal any abdominal tenderness - s/p Leukocytosis, No lactic acidosis - Blood cultures 10/06: E. Coli, Blood cultures 10/07: No growth at 24 hours - CT abdomen / pelvis 10/06: Continued evidence for sigmoid diverticulitis. Small amounts of portal venous gas are now identified in the superior mesenteric vein suggesting the possibility of associated bowel infarction and correlation is required. No free air to suggest perforation. No bowel obstruction. - CT abdomen / pelvis 10/08: Non-occlusive thrombus in the midportion of the portal vein, suspected complete occlusion of inferior mesenteric vein, sigmoid diverticulitis, mild gall-bladder wall thickening, new samll pleural effusions / basilar atelectasis - c/w Meropenem; s/p Ciprofloxacin / Flagyl (Antibiotic day #5) - Will reduce IV fluid rate; will be transitioned to PO diet - ID on consult; appreciate their input Gram negative bacteremia - See above Thrombosis of superior, inferior mesenteric vein and portal vein - c/w Heparin drip; plan to transition to oral anticoagulation upon discharge - Dr. Leger on consultation; appreciate their input Elevated Bilirubin / AST / ALT - possibly 2/2 hepatic engorgement 2/2 poor - likely 2/2 thrombosis of superior, inferior mesenteric vein and portal vein - Improving - Hepatitis profile (10/04/18) negative - s/p Statin Crackles at b/l lung bases - likely 2/2 atelectasis, less likely 2/2 fluid overload - Patient denies any significant shortness of breath - CXR 10/08: Mild bibasilar fibroatelectatic change without evidence of acute infiltrate or pulmonary edema. - Will reduce IV fluid rate; will be transitioned to PO diet - c/w incentive spirometry s/p Hyponatremia (mild) - likely 2/2 hypotonic hypovolemic s/p Hypokalemia SSS s/p PM GI prophylaxis - c/w Protonix DVT prophylaxis - c/w Lovenox VS,Fishbone, I+O VS, Fishbone, I+O Laboratory Tests 10/09/18 05:51 Red Blood Count 3.94 L, Mean Corpuscular Volume 85.5, Mean Corpuscular Hemoglobin 30.2, Mean Corpuscular Hemoglobin Concent 35.3, Red Cell Distribution Width 14.6 H, Neutrophils (%) (Auto) 76.1 H, Lymphocytes (%) (Auto) 12.6 L, Monocytes (%) (Auto) 8.2 H, Eosinophils (%) (Auto) 1.1, Basophils (%) (Auto) 0.3, Neutrophils # (Auto) 11.4 H, Lymphocytes # (Auto) 1.9, Monocytes # (Auto) 1.2 H, Eosinophils # (Auto) 0.2, Basophils # (Auto) 0.0, Calcium Level 7.2 L, Aspartate Amino Transf (AST/SGOT) 112 H, Alanine Aminotransferase (ALT/SGPT) 111 H, Alkaline Phosphatase 266 H, Total Bilirubin 1.9 H, Total Protein 5.0 L, Albumin 1.8 L Vital Signs Date Time Temp Pulse Resp B/P (MAP) Pulse Ox O2 Delivery O2 Flow Rate FiO2 10/09/18 06:51 101.4 10/09/18 06:00 79 16 145/81 (102) 96 10/07/18 14:01 Room Air 10/07/18 14:00 98.0 I&O- Last 24 Hours up to 6 AM 10/09/18 06:00 Intake Total 3935 ml Output Total 1275 ml Balance 2660 ml SY NIELSEN MD Oct 09, 2018 11:01
[2018-10-09 14:00] VITALS: BP 146/70
[2018-10-09] MEDS: KETOROLAC 30 MG/ML VIAL (J1885) IV PRN (15:43)
--- NOTE | 2018-10-09 21:16 | IPN ---
DATE: 10/09/2018 Mr. Mccormack is doing slightly better today. He still complains of mostly right hip pain radiating into his groin, testicle and medial side. He has no appetite, but no nausea, vomiting. He had a few episodes of diarrhea and passing gas. There was question whether he should be transferred to [facility]. They are still waiting for a bed. His fever has improved, although this morning he had a temperature up to 101.4. Tonight it is 99.6, pulse 71, respirations 16, blood pressure 146/70, O2 sat 93% on room air. Heart: Normal S1, S2. No murmurs. Lungs: Clear. No wheezes, rales or rhonchi. Abdomen: Soft, distended. Bowel sounds diminished. Mildly tender in the lower quadrant. Back: No CVA tenderness. Mild right sacral iliac tenderness on the right side. examination: Normal. Testicles not enlarged or swollen. Extremities: No edema. Motor strength normal. LABORATORY DATA White count is 15, hemoglobin 11.9, hematocrit 33.7, platelets 194 which has improved from 77, 76% neutrophils, 12% lymphocytes, 8% monocytes. Sodium 138, potassium 3.9, chloride 106, bicarb 26, BUN 8, creatinine 0.7, glucose 144, calcium 7.2, magnesium 2.1, bilirubin 1.9, down from 3, AST 112, ALT 111, alk phos 266, CRP 15.5, albumin 1.8. Blood cultures are positive for E-coli, sensitive to ampicillin. The patient ALLERGIC TO PENICILLIN. CT abdomen and pelvis done on 10/[address] Gray. There is a nonocclusive thrombus in a portion of the portal vein with suspected complete occlusion of the inferior mesenteric vein to sigmoid colon which demonstrate known sigmoid diverticulitis and mucosal thickening with pericolonic stranding. No evidence of abscess or perforation, pneumatosis or free air. Mild gallbladder wall thickening. New small pleural effusions. IMPRESSION 1. 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 The patient has slightly improved today on IV meropenem. Will continue current antibiotics for broad-spectrum coverage. She is PENICILLIN ALLERGIC. 2. 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 3. Persistent right sacral iliac pain with the radiculopathy radiating to his medial thigh and testicle. I have reviewed the CT with Dr. Gray who does not feel the patient has discitis, but he definitely has moderate spinal stenosis which could explain some of his pain, although this only occurred after the infection and should keep an eye on possibility of seeding the disc space or an epidural abscess. At this point, Dr. Gray did not feel further imaging would be of any benefit. MRI is contraindicated as he has a pacemaker. PLAN: Continue IV meropenem and IV heparin. Case has been discussed with his and [id number] who is a nurse. There was concern about whether he needed to be transferred to a higher level of care. At this point I do not see any indication for surgery.
[2018-10-09] MEDS: valACYclovir HCL 500 MG TAB PO SCH (21:56)
[2018-10-09] MEDS: PANTOPRAZOLE 40MG INJ (PROTONIX) (C9113) IV SCH (21:57)
[2018-10-09 22:00] VITALS: BP 119/71
[2018-10-10] MEDS: MEROPENEM INJ 1 GM in APPROPRIATE DILUENT 1 EA IV SCH ×3 (01:33→17:23)
[2018-10-10 02:00] VITALS: BP 138/65
[2018-10-10 06:00] VITALS: BP 129/58
[2018-10-10] MEDS: ACETAMINOPHEN TAB 650MG DOSE (2X325MG) PO PRN ×2 (06:14→17:23)
[2018-10-10] MEDS: KETOROLAC 30 MG/ML VIAL (J1885) IV PRN ×2 (06:15→17:36)
[2018-10-10 06:32] LABS: BASO # 0.1 10^3/uL (0.0-0.2); BASO % 0.3 % (0.0-1.0); EOS # 0.1 10^3/uL (0.0-0.50); EOS % 0.7 % (0.0-3.0); LYMPH # 1.8 10^3/uL (1.5-4.5); LYMPH % 10.7 % (24.0-44.0); MEAN CORPUSCULAR HEMOGLOBIN 29.6 pg (27.0-33.0); MEAN CORPUSCULAR HGB CONC 34.4 g/dl (32.0-36.5); MONO % 5.7 % (0.0-5.0); NEUTROPHILS # 13.4 10^3/uL (1.8-7.7); NEUTROPHILS % 80.3 % (36.0-66.0); PLATELET COUNT, AUTOMATED 260 10^3/uL (150-450); RED BLOOD COUNT 3.72 10^6/uL (4.30-6.10); WHITE BLOOD COUNT 16.7 10^3/uL (4.0-10.0)
[2018-10-10 07:08] LABS: ALBUMIN 1.7 GM/DL (3.2-5.2); ALT/SGPT 172 U/L (12-78); BILIRUBIN,TOTAL 1.8 MG/DL (0.2-1.0); BLOOD UREA NITROGEN 6 MG/DL (7-18); CALCIUM LEVEL 7.6 MG/DL (8.8-10.2); CARBON DIOXIDE LEVEL 27 MEQ/L (21-32); CHLORIDE LEVEL 101 MEQ/L (98-107); GLOMERULAR FILTRATION RATE > 60.0 (>49); GLUCOSE, FASTING 119 MG/DL (70-100); LIPASE 130 U/L (73-393); MAGNESIUM LEVEL 1.8 MG/DL (1.8-2.4); POTASSIUM SERUM 3.8 MEQ/L (3.5-5.1); SODIUM LEVEL 135 MEQ/L (136-145); TOTAL PROTEIN 5.6 GM/DL (6.4-8.2)
[2018-10-10] MEDS: HEPARIN DRIP 25,000 UNITS in APPROPRIATE DILUENT 1 EA IV SCH (08:01)
[2018-10-10] MEDS: valACYclovir HCL 500 MG TAB PO SCH ×2 (08:41→22:04)
[2018-10-10] MEDS: SENOKOT S TAB PO SCH ×2 (08:41→22:03)
--- NOTE | 2018-10-10 08:47 | IPNPDOC ---
Text Note Date of Service The patient was seen on 10/10/18. NOTE No acute events overnight. Denies nausea or emesis. Denies SOB, chest pain. He is passing flatus, and has had a few bowel movements. He is tolerating the clq diet so far without any problems. He went almost 24 hours without a fever since about 6:50 am yesterday until about 6:30 this am. Last evening I spent 45 minutes discussing the case with him, his , and sister in law. I explained to them that the CT is improved. At this point, I am not concerned about transferring him, but they still seem like we aren't doing enough and he needs to be somewhere else. He is comfortable with his care here, but I get the impression that his and sister in law are not. They are agreeable to staying here, but would still like to get him a second opinion if a bed opens up somewhere. VSSAF overnight with fever up to 101.1 this am. NAD abd - soft, NT, slightly distended today, no signs of peritonitis labs - below leukocytosis increasing as well as LFTs CT - No signs of portal venous gas, there is a non-obstructing portal vein thrombus with possible complete occlusion of the IMV. A) 63y/o male with complicated diverticulitis, and septic portal venous thrombus with E.coli bacteremia P)reg diet heparin drip ambulate abx ok to shower will continue with current management Plan on transitioning to PO abx and PO anticoagulation once he is afebrile for 24 hours and tolerating reg diet Waiting for bed to open up in [facility] if the family still wants a transfer. Oniel Bunn DO VS,Ron, I+O VS, Ron, I+O Laboratory Tests 10/10/18 05:49 Red Blood Count 3.72 L, Mean Corpuscular Volume 86.0, Mean Corpuscular Hemog lobin 29.6, Mean Corpuscular Hemoglobin Concent 34.4, Red Cell Distribution Width 14.6 H, Neutrophils (%) (Auto) 80.3 H, Lymphocytes (%) (Auto) 10.7 L, Monocytes (%) (Auto) 5.7 H, Eosinophils (%) (Auto) 0.7, Basophils (%) (Auto) 0.3, Neutrophils # (Auto) 13.4 H, Lymphocytes # (Auto) 1.8, Monocytes # (Auto) 1.0 H, Eosinophils # (Auto) 0.1, Basophils # (Auto) 0.1, Calcium Level 7.6 L, Aspartate Amino Transf (AST/SGOT) 203 H, Alanine Aminotransferase (ALT/SGPT) 172 H, Alkaline Phosphatase 421 H, Total Bilirubin 1.8 H, Total Protein 5.6 L, Albumin 1.7 L Vital Signs Date Time Temp Pulse Resp B/P (MAP) Pulse Ox O2 Delivery O2 Flow Rate FiO2 10/10/18 06:00 101.1 85 18 129/58 (81) 99 10/07/18 14:01 Room Air 10/07/18 14:00 98.0 I&O- Last 24 Hours up to 6 AM 10/10/18 06:00 Intake Total 3770 ml Output Total 900 ml Balance 2870 ml LAURA BUNN DO Oct 10, 2018 08:47
--- NOTE | 2018-10-10 10:31 | IPNPDOC ---
Text Note Date of Service The patient was seen on 10/10/18. NOTE Subjective: Patient is a 63 year old male with a PMHx of SSS s/p PM (06/2018), who presented to the ER after he had an abnormal CT abdomen for abdominal pain he experienced last week (~ 5 days). Patient was admitted to the surgical service for suspected ischemic colitis. Hospitalist were called on consult. Patient was seen and examined at the bedside. He was also seen walking around the floor. He denies any abdominal pain, N/V, diarrhea. Has had a small bowel movement. Denies any CP, SOB or palpitations. Has been tolerating a diet. Objective: Vitals (See below) General: Lying in bed, no acute distress, comfortable, AAOx3 HEENT: NC, AT CVS: RRR, +S1S2 Lungs: Fair air entry b/l, no auscultated evidence of rhonchi / rales / wheezing Abdomen: Soft, non-tender, no significant distention Extremities: LE without any edema, - Calf tenderness Assessment and plan: Recent history of abdominal pain / fever / chills - likely 2/2 intra-abdominal source of infection - possibly 2/2 diverticulitis / infectious colitis - Clinically has had improvement in symptoms; - No abdominal tenderness / Febrile episodes still noted - No lactic acidosis; Elevation in WBC; Improvement in CRP - Blood cultures 10/06: E. Coli, Blood cultures 10/07: No growth at 48 hours - CT abdomen / pelvis 10/06: Continued evidence for sigmoid diverticulitis. Small amounts of portal venous gas are now identified in the superior mesenteric vein suggesting the possibility of associated bowel infarction and correlation is required. No free air to suggest perforation. No bowel obstruction. - CT abdomen / pelvis 10/08: Non-occlusive thrombus in the midportion of the portal vein, suspected complete occlusion of inferior mesenteric vein, sigmoid diverticulitis, mild gall-bladder wall thickening, new samll pleural effusions / basilar atelectasis - c/w Meropenem; s/p Ciprofloxacin / Flagyl (Antibiotic day #6) - Will DC IV fluids - Managed by surgery; ID on consult; appreciate their input Gram negative bacteremia - See above Thrombosis of superior, inferior mesenteric vein and portal vein - c/w Heparin drip; plan to transition to oral anticoagulation upon discharge - Dr. Leger on consultation; appreciate their input Elevated Bilirubin / AST / ALT - possibly 2/2 hepatic engorgement 2/2 poor - likely 2/2 thrombosis of superior, inferior mesenteric vein and portal vein - Remains relatively stable - Hepatitis profile (10/04/18) negative - s/p Statin Crackles at b/l lung bases - likely 2/2 atelectasis, less likely 2/2 fluid overload - Patient denies any significant shortness of breath - CXR 10/08: Mild bibasilar fibroatelectatic change without evidence of acute infiltrate or pulmonary edema. - c/w incentive spirometry s/p Hyponatremia (mild) - likely 2/2 hypotonic hypovolemic s/p Hypokalemia SSS s/p PM GI prophylaxis - c/w Protonix DVT prophylaxis - c/w Lovenox VS,Fishbone, I+O VS, Fishbone, I+O Laboratory Tests 10/10/18 05:49 Red Blood Count 3.72 L, Mean Corpuscular Volume 86.0, Mean Corpuscular Hemoglobin 29.6, Mean Corpuscular Hemoglobin Concent 34.4, Red Cell Distribution Width 14.6 H, Neutrophils (%) (Auto) 80.3 H, Lymphocytes (%) (Auto) 10.7 L, Monocytes (%) (Auto) 5.7 H, Eosinophils (%) (Auto) 0.7, Basophils (%) (Auto) 0.3, Neutrophils # (Auto) 13.4 H, Lymphocytes # (Auto) 1.8, Monocytes # (Auto) 1.0 H, Eosinophils # (Auto) 0.1, Basophils # (Auto) 0.1, Calcium Level 7.6 L, Aspartate Amino Transf (AST/SGOT) 203 H, Alanine Aminotransferase (ALT/SGPT) 172 H, Alkaline Phosphatase 421 H, Total Bilirubin 1.8 H, Total Protein 5.6 L, Albumin 1.7 L Vital Signs Date Time Temp Pulse Resp B/P (MAP) Pulse Ox O2 Delivery O2 Flow Rate FiO2 10/10/18 06:00 101.1 85 18 129/58 (81) 99 10/07/18 14:01 Room Air 10/07/18 14:00 98.0 I&O- Last 24 Hours up to 6 AM 10/10/18 06:00 Intake Total 4272 ml Output Total 900 ml Balance 3372 ml SY NIELSEN MD Oct 10, 2018 10:31
[2018-10-10 14:00] VITALS: BP 147/69
--- NOTE | 2018-10-10 15:23 | IPN ---
DATE: 10/10/2018 Mr. Mccormack is doing much better today. Even though he had a fever of 101.1 this morning, he has a better appetite. He had some breakfast, soup and planning to eat his banana. He has no nausea or vomiting. Abdominal bloating has decreased. He had a fair bowel movement today. Right sacral iliac pain with radiculopathy has decreased. PHYSICAL EXAMINATION: Temperature is 101.1, pulse 85, respirations 18, blood pressure 129/58, oxygen saturation 99% on room air. HEART: Normal S1-S2. No murmurs. LUNGS: Clear. No wheezes or rhonchi. ABDOMEN: Distended, nontender. Bowel sounds present. BACK: No costovertebral angle (CVA) tenderness. EXTREMITIES: No edema. SKIN: He has a herpetic outbreaks on nose, upper lip and left cheek which is dry, scabbing over. LABORATORY DATA: White count 16.7, slightly increased from 15 yesterday, hemoglobin 11, hematocrit 32, platelets 260, marked improvement from 77 on admission, 80% neutrophils, 10% lymphocytes, 5% monocytes. Sodium 135, potassium 3.8, chloride 101, bicarbonate 27, BUN 6, creatinine 0.7, calcium 7.7, magnesium 1.8. Bilirubin 1.8, AST 203, ALT 172, alkaline phosphatase 421, CRP 12.9. IMPRESSION: 1. Acute sigmoid diverticulitis with inferior mesenteric vein thrombosis and gram-negative bacteremia with Escherichia (E) coli. Patient on intravenous (IV) meropenem. I did not de-escalate his therapy, as he cannot be de-escalated to penicillin with his previous allergies. I would want to keep him on anaerobic coverage for diverticulitis. 2. 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 Patient continues on heparin drip. 3. Abnormal liver function tests with elevated AST, ALT and bilirubin. Probably related to portal vein thrombosis and congestion. Patient does not have right upper quadrant pain or symptoms suggestive of acute cholangitis. 4. 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 PLAN: 1. Continue IV meropenem 1 gram every 8 hours, IV heparin. 2. Valtrex 500 mg by mouth twice a day.
[2018-10-10 16:00] VITALS: BP 142/62
[2018-10-10 22:00] VITALS: BP 117/56
[2018-10-10] MEDS: PANTOPRAZOLE 40MG INJ (PROTONIX) (C9113) IV SCH (22:04)
[2018-10-11] MEDS: MEROPENEM INJ 1 GM in APPROPRIATE DILUENT 1 EA IV SCH ×3 (00:44→17:43)
[2018-10-11] MEDS: HEPARIN DRIP 25,000 UNITS in APPROPRIATE DILUENT 1 EA IV SCH ×2 (00:46→16:12)
[2018-10-11 02:00] VITALS: BP 136/62
[2018-10-11] MEDS: KETOROLAC 30 MG/ML VIAL (J1885) IV PRN (05:32)
[2018-10-11 06:00] VITALS: BP 142/65
[2018-10-11 06:24] LABS: BASO # 0.1 10^3/uL (0.0-0.2); BASO % 0.3 % (0.0-1.0); EOS # 0.2 10^3/uL (0.0-0.50); EOS % 1.1 % (0.0-3.0); HEMATOCRIT 31.6 % (42.0-52.0); LYMPH # 2.5 10^3/uL (1.5-4.5); LYMPH % 14.1 % (24.0-44.0); MEAN CORPUSCULAR HEMOGLOBIN 29.3 pg (27.0-33.0); MEAN CORPUSCULAR HGB CONC 34.8 g/dl (32.0-36.5); MONO # 1.3 10^3/uL (0.0-0.8); NEUTROPHILS # 13.6 10^3/uL (1.8-7.7); NEUTROPHILS % 75.3 % (36.0-66.0); PLATELET COUNT, AUTOMATED 326 10^3/uL (150-450); RED BLOOD COUNT 3.76 10^6/uL (4.30-6.10)
[2018-10-11 06:47] LABS: ALBUMIN 1.7 GM/DL (3.2-5.2); ALT/SGPT 178 U/L (12-78); BILIRUBIN,TOTAL 1.9 MG/DL (0.2-1.0); BLOOD UREA NITROGEN 7 MG/DL (7-18); CALCIUM LEVEL 7.7 MG/DL (8.8-10.2); CARBON DIOXIDE LEVEL 26 MEQ/L (21-32); CHLORIDE LEVEL 98 MEQ/L (98-107); CREATININE FOR GFR 0.64 MG/DL (0.70-1.30); GLOMERULAR FILTRATION RATE > 60.0 (>49); GLUCOSE, FASTING 116 MG/DL (70-100); LIPASE 149 U/L (73-393); POTASSIUM SERUM 3.6 MEQ/L (3.5-5.1); SODIUM LEVEL 132 MEQ/L (136-145); TOTAL PROTEIN 5.9 GM/DL (6.4-8.2)
[2018-10-11] MEDS: SENOKOT S TAB PO SCH ×2 (09:00→20:54)
[2018-10-11 10:00] VITALS: BP 126/59
[2018-10-11] MEDS: valACYclovir HCL 500 MG TAB PO SCH ×2 (10:03→21:03)
--- NOTE | 2018-10-11 10:40 | IPNPDOC ---
Text Note Date of Service The patient was seen on 10/11/18. NOTE No acute events overnight. Denies nausea or emesis. Denies SOB, chest pain. He is passing flatus, and is having formed BMs now. He is tolerating the reg diet so far without any problems. Overall, she feels better today. VSSAF overnight with fever up to 100.7 this am. NAD abd - soft, NT, slightly less distended today, no signs of peritonitis labs - below leukocytosis increasing as well as LFTs CT - No signs of portal venous gas, there is a non-obstructing portal vein thrombus with possible complete occlusion of the IMV. A) 63y/o male with complicated diverticulitis, and septic portal venous thrombus with E.coli bacteremia P)reg diet heparin drip ambulate abx ok to shower will continue with current management Plan on transitioning to PO abx and PO anticoagulation once he is afebrile for 24 hours and tolerating reg diet Waiting for bed to open up in [facility] if the family still wants a transfer. Oniel Bunn DO VS,Ron, I+O VS, Ron, I+O Laboratory Tests 10/11/18 05:57 Red Blood Count 3.76 L, Mean Corpuscular Volume 84.0, Mean Corpuscular Hemoglobin 29.3, Mean Corpuscular Hemoglobin Concent 34.8, Red Cell Distribution Width 14.4, Neutrophils (%) (Auto) 75.3 H, Lymphocytes (%) (Auto) 14.1 L, Monocytes (%) (Auto) 7.0 H, Eosinophils (%) (Auto) 1.1, Basophils (%) (Auto) 0.3, Neutrophils # (Auto) 13.6 H, Lymphocytes # (Auto) 2.5, Monocytes # (Auto) 1.3 H, Eosinophils # (Auto) 0.2, Basophils # (Auto) 0.1, Calcium Level 7.7 L, Aspartate Amino Transf (AST/SGOT) 161 H, Alanine Aminotransferase (ALT/SGPT) 178 H, Alkaline Phosphatase 468 H, Total Bilirubin 1.9 H, Total Protein 5.9 L, Albumin 1.7 L Vital Signs Date Time Temp Pulse Resp B/P (MAP) Pulse Ox O2 Delivery O2 Flow Rate FiO2 10/11/18 06:00 99.2 68 20 142/65 (90) 95 10/07/18 14:01 Room Air 10/07/18 14:00 98.0 I&O- Last 24 Hours up to 6 AM 10/11/18 06:00 Intake Total 2404 ml Output Total 2200 ml Balance 204 ml LAURA BUNN DO Oct 11, 2018 10:40
--- NOTE | 2018-10-11 12:47 | IPNPDOC ---
Text Note Date of Service The patient was seen on 10/11/18. NOTE Subjective: Patient is a 63 year old male with a PMHx of SSS s/p PM (06/2018), who presented to the ER after he had an abnormal CT abdomen for abdominal pain he experienced last week (~ 5 days). Patient was admitted to the surgical service for suspected ischemic colitis. Hospitalist were called on consult. Patient was seen and examined at the bedside. Patient has no complaints this morning. Has been ambulating around nursing unit. Tolerating a diet, without experiencing nausea and vomiting. Denies any C/D or abdominal pain. Denies any CP, SOB or palpitations. Objective: Vitals (See below) General: Lying in bed, no acute distress, comfortable, AAOx3 HEENT: NC, AT CVS: RRR, +S1S2 Lungs: Fair air entry b/l, no auscultated evidence of rhonchi / rales / wheezing Abdomen: Soft, non-tender, no significant distention Extremities: LE without any edema, - Calf tenderness Assessment and plan: Recent history of abdominal pain / fever / chills - likely 2/2 intra-abdominal source of infection - possibly 2/2 diverticulitis / infectious colitis - Clinically has had improvement in symptoms; - No abdominal tenderness / Febrile episodes still noted - No lactic acidosis; Elevation in WBC continues; CRP remains stable - Blood cultures 10/06: E. Coli, Blood cultures 10/07: No growth at 48 hours - CT abdomen / pelvis 10/06: Continued evidence for sigmoid diverticulitis. Small amounts of portal venous gas are now identified in the superior mesenteric vein suggesting the possibility of associated bowel infarction and correlation is required. No free air to suggest perforation. No bowel obstruction. - CT abdomen / pelvis 10/08: Non-occlusive thrombus in the midportion of the portal vein, suspected complete occlusion of inferior mesenteric vein, sigmoid diverticulitis, mild gall-bladder wall thickening, new samll pleural effusions / basilar atelectasis - c/w Meropenem; s/p Ciprofloxacin / Flagyl (Antibiotic day #7); s/p IV fluids - Managed by surgery; ID on consult; appreciate their input Gram negative bacteremia - See above Thrombosis of superior, inferior mesenteric vein and portal vein - c/w Heparin drip; plan to transition to oral anticoagulation upon discharge - Dr. Leger on consultation; appreciate their input Elevated Bilirubin / AST / ALT - possibly 2/2 hepatic engorgement 2/2 poor - likely 2/2 thrombosis of superior, inferior mesenteric vein and portal vein - Continues to remain relatively stable - Hepatitis profile (10/04/18) negative - s/p Statin Crackles at b/l lung bases - likely 2/2 atelectasis, less likely 2/2 fluid overload - Patient denies any significant shortness of breath - CXR 10/08: Mild bibasilar fibroatelectatic change without evidence of acute infiltrate or pulmonary edema. - c/w incentive spirometry s/p Hyponatremia (mild) - likely 2/2 hypotonic hypovolemic s/p Hypokalemia SSS s/p PM GI prophylaxis - c/w Protonix DVT prophylaxis - c/w Lovenox Disposition: - Anticipate transition to oral medications within 48 hours if febrile episodes resolve / Leukocytosis improves VS,Fishbone, I+O VS, Fishbone, I+O Laboratory Tests 10/11/18 05:57 Red Blood Count 3.76 L, Mean Corpuscular Volume 84.0, Mean Corpuscular Hemoglobin 29.3, Mean Corpuscular Hemoglobin Concent 34.8, Red Cell Distribution Width 14.4, Neutrophils (%) (Auto) 75.3 H, Lymphocytes (%) (Auto) 14.1 L, Monocytes (%) (Auto) 7.0 H, Eosinophils (%) (Auto) 1.1, Basophils (%) (Auto) 0.3, Neutrophils # (Auto) 13.6 H, Lymphocytes # (Auto) 2.5, Monocytes # (Auto) 1.3 H, Eosinophils # (Auto) 0.2, Basophils # (Auto) 0.1, Calcium Level 7.7 L, Aspartate Amino Transf (AST/SGOT) 161 H, Alanine Aminotransferase (ALT/SGPT) 178 H, Alkaline Phosphatase 468 H, Total Bilirubin 1.9 H, Total Protein 5.9 L, Albumin 1.7 L Vital Signs Date Time Temp Pulse Resp B/P (MAP) Pulse Ox O2 Delivery O2 Flow Rate FiO2 10/11/18 10:00 98.2 67 18 126/59 (81) 97 10/07/18 14:01 Room Air 10/07/18 14:00 98.0 I&O- Last 24 Hours up to 6 AM 10/11/18 06:00 Intake Total 2404 ml Output Total 2200 ml Balance 204 ml SY NIELSEN MD Oct 11, 2018 12:47
[2018-10-11 14:00] VITALS: BP 132/60
[2018-10-11] MEDS: ACETAMINOPHEN TAB 650MG DOSE (2X325MG) PO PRN (15:00)
[2018-10-11 18:00] VITALS: BP 130/61
[2018-10-11] MEDS: PANTOPRAZOLE 40MG INJ (PROTONIX) (C9113) IV SCH (21:03)
[2018-10-11] MEDS: MORPHINE 4 MG/ML 1ML VIAL/SYRINGE (J2270) IV PRN (21:04)
[2018-10-11 22:00] VITALS: BP 132/65
[2018-10-12] MEDS: MEROPENEM INJ 1 GM in APPROPRIATE DILUENT 1 EA IV SCH ×3 (01:29→17:53)
[2018-10-12] MEDS: MORPHINE 4 MG/ML 1ML VIAL/SYRINGE (J2270) IV PRN (01:37)
[2018-10-12 02:00] VITALS: BP 148/67
[2018-10-12 04:14] LABS: BASO # 0.1 10^3/uL (0.0-0.2); BASO % 0.3 % (0.0-1.0); EOS # 0.2 10^3/uL (0.0-0.50); EOS % 1.1 % (0.0-3.0); HEMATOCRIT 29.8 % (42.0-52.0); HEMOGLOBIN 10.4 g/dl (13.5-17.5); LYMPH # 2.7 10^3/uL (1.5-4.5); LYMPH % 15.3 % (24.0-44.0); MEAN CORPUSCULAR HEMOGLOBIN 30.3 pg (27.0-33.0); MEAN CORPUSCULAR HGB CONC 34.9 g/dl (32.0-36.5); MEAN CORPUSCULAR VOLUME 86.9 fl (80.0-96.0); MONO # 1.1 10^3/uL (0.0-0.8); MONO % 6.2 % (0.0-5.0); NEUTROPHILS # 13.2 10^3/uL (1.8-7.7); NEUTROPHILS % 74.5 % (36.0-66.0); PLATELET COUNT, AUTOMATED 355 10^3/uL (150-450); RED BLOOD COUNT 3.43 10^6/uL (4.30-6.10); WHITE BLOOD COUNT 17.7 10^3/uL (4.0-10.0)
[2018-10-12 04:36] LABS: ALBUMIN 1.6 GM/DL (3.2-5.2); ALT/SGPT 167 U/L (12-78); BILIRUBIN,TOTAL 1.3 MG/DL (0.2-1.0); BLOOD UREA NITROGEN 6 MG/DL (7-18); C REACTIVE PROTEIN QUANTITATIV 9.37 MG/DL (0.00-0.30); CALCIUM LEVEL 7.4 MG/DL (8.8-10.2); CARBON DIOXIDE LEVEL 28 MEQ/L (21-32); CHLORIDE LEVEL 99 MEQ/L (98-107); CREATININE FOR GFR 0.72 MG/DL (0.70-1.30); GLOMERULAR FILTRATION RATE > 60.0 (>49); GLUCOSE, FASTING 122 MG/DL (70-100); LIPASE 121 U/L (73-393); POTASSIUM SERUM 3.6 MEQ/L (3.5-5.1); SODIUM LEVEL 133 MEQ/L (136-145); TOTAL PROTEIN 5.5 GM/DL (6.4-8.2)
[2018-10-12 06:00] VITALS: BP 146/66
[2018-10-12] MEDS: valACYclovir HCL 500 MG TAB PO SCH ×2 (08:36→20:33)
[2018-10-12] MEDS: HEPARIN DRIP 25,000 UNITS in APPROPRIATE DILUENT 1 EA IV SCH (08:36)
[2018-10-12] MEDS: SENOKOT S TAB PO SCH ×2 (08:38→20:33)
--- NOTE | 2018-10-12 08:40 | IPNPDOC ---
Text Note Date of Service The patient was seen on 10/12/18. NOTE No acute events overnight. Denies nausea or emesis. Denies SOB, chest pain. He is passing flatus, and is having formed BMs. No complaints today. VSSAF overnight NAD abd - soft, NT, slightly less distended today, no signs of peritonitis labs - below leukocytosis improving as well as LFTs CT - No signs of portal venous gas, there is a non-obstructing portal vein thrombus with possible complete occlusion of the IMV. A) 63y/o male with complicated diverticulitis, and septic portal venous thrombus with E.coli bacteremia P)reg diet heparin drip d/c start eliquis stop IV pain meds add motrin ambulate abx ok to shower will consider d/c home late tomorrow or saturday Oniel Bunn DO VS,Fishbone, I+O VS, Fishbone, I+O Laboratory Tests 10/12/18 03:58 Red Blood Count 3.43 L, Mean Corpuscular Volume 86.9, Mean Corpuscular H emoglobin 30.3, Mean Corpuscular Hemoglobin Concent 34.9, Red Cell Distribution Width 14.7 H, Neutrophils (%) (Auto) 74.5 H, Lymphocytes (%) (Auto) 15.3 L, Monocytes (%) (Auto) 6.2 H, Eosinophils (%) (Auto) 1.1, Basophils (%) (Auto) 0.3, Neutrophils # (Auto) 13.2 H, Lymphocytes # (Auto) 2.7, Monocytes # (Auto) 1.1 H, Eosinophils # (Auto) 0.2, Basophils # (Auto) 0.1, Calcium Level 7.4 L, Aspartate Amino Transf (AST/SGOT) 122 H, Alanine Aminotransferase (ALT/SGPT) 167 H, Alkaline Phosphatase 454 H, Total Bilirubin 1.3 H, Total Protein 5.5 L, Albumin 1.6 L Vital Signs Date Time Temp Pulse Resp B/P (MAP) Pulse Ox O2 Delivery O2 Flow Rate FiO2 10/12/18 06:00 98.9 73 16 146/66 (92) 92 10/07/18 14:01 Room Air 10/07/18 14:00 98.0 I&O- Last 24 Hours up to 6 AM 10/12/18 06:00 Intake Total 1592 ml Output Total 1200 ml Balance 392 ml LAURA BUNN DO Oct 12, 2018 08:40
[2018-10-12 10:00] VITALS: BP 125/59
[2018-10-12] MEDS ORDERED: PANTOPRAZOLE 40MG TAB (PROTONIX) PO ONE (10:00)
--- NOTE | 2018-10-12 10:19 | IPNPDOC ---
Text Note Date of Service The patient was seen on 10/12/18. NOTE Subjective: Patient is a 63 year old male with a PMHx of SSS s/p PM (06/2018), who presented to the ER after he had an abnormal CT abdomen for abdominal pain he experienced last week (~ 5 days). Patient was admitted to the surgical service for suspected ischemic colitis. Hospitalist were called on consult. Patient was seen and examined at the bedside. . He continues to ambulate without any difficulty. Denies any chest pain, shortness breath or palpitations. Denies nausea, vomiting, abdominal pain, constipation, diarrhea or discomfort with urination. Objective: Vitals (See below) General: Lying in bed, no acute distress, comfortable, AAOx3 HEENT: NC, AT, Philtrum with improvement in scarred lesions CVS: RRR, +S1S2 Lungs: Fair air entry b/l, no appreciated wheezing / rhonchi / rales Abdomen: Soft, ND, no significant tenderness Extremities: No evidence of LE edema , - Calf tenderness Assessment and plan: Recent history of abdominal pain / fever / chills - likely 2/2 intra-abdominal source of infection - possibly 2/2 diverticulitis / infectious colitis - Clinically has had significant improvement; no abdominal tenderness / febrile episodes have subsided - No lactic acidosis; Mild improvement in WBC; CRP improving - Blood cultures 10/06: E. Coli, Blood cultures 10/07: 1 of 2 bottles with Gram Positive Rods; Blood cultures 10/10: Negative at 24 hours - CT abdomen / pelvis 10/06: Continued evidence for sigmoid diverticulitis. Small amounts of portal venous gas are now identified in the superior mesenteric vein suggesting the possibility of associated bowel infarction and correlation is required. No free air to suggest perforation. No bowel obstruction. - CT abdomen / pelvis 10/08: Non-occlusive thrombus in the midportion of the portal vein, suspected complete occlusion of inferior mesenteric vein, sigmoid diverticulitis, mild gall-bladder wall thickening, new samll pleural effusions / basilar atelectasis - c/w Meropenem; s/p Ciprofloxacin / Flagyl (Antibiotic day #8); s/p IV fluids - Managed by surgery; ID on consult; appreciate their input Gram negative bacteremia - See above Thrombosis of superior, inferior mesenteric vein and portal vein - c/w Heparin drip; transition to Eliquis today - Dr. Leger on consultation; appreciate their input Elevated Bilirubin / AST / ALT - possibly 2/2 hepatic engorgement 2/2 poor - likely 2/2 thrombosis of superior, inferior mesenteric vein and portal vein - Continues to remain relatively stable - Hepatitis profile (10/04/18) negative - s/p Statin Crackles at b/l lung bases - likely 2/2 atelectasis, less likely 2/2 fluid overload - Patient denies any significant shortness of breath - CXR 10/08: Mild bibasilar fibroatelectatic change without evidence of acute infiltrate or pulmonary edema. 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 - c/w Valacyclovir (Day #4) Hyponatremia (mild) - likely 2/2 hypotonic hypovolemic - Continue with oral hydration s/p Hypokalemia SSS s/p PM GI prophylaxis - c/w Protonix; Will change to PO DVT prophylaxis - Will transition from full heparin drip to Eliquis Disposition: - Anticipate transition to oral antibiotics within 24 hours if febrile episodes resolve / leukocytosis improves - Anticipate DC within 48 hours VS,Fishbone, I+O VS, Fishbone, I+O Laboratory Tests 10/12/18 03:58 Red Blood Count 3.43 L, Mean Corpuscular Volume 86.9, Mean Corpuscular Hemoglobin 30.3, Mean Corpuscular Hemoglobin Concent 34.9, Red Cell Distribution Width 14.7 H, Neutrophils (%) (Auto) 74.5 H, Lymphocytes (%) (Auto) 15.3 L, Monocytes (%) (Auto) 6.2 H, Eosinophils (%) (Auto) 1.1, Basophils (%) (Auto) 0.3, Neutrophils # (Auto) 13.2 H, Lymphocytes # (Auto) 2.7, Monocytes # (Auto) 1.1 H, Eosinophils # (Auto) 0.2, Basophils # (Auto) 0.1, Calcium Level 7.4 L, Aspartate Amino Transf (AST/SGOT) 122 H, Alanine Aminotransferase (ALT/SGPT) 167 H, Alkaline Phosphatase 454 H, Total Bilirubin 1.3 H, Total Protein 5.5 L, Albumin 1.6 L Vital Signs Date Time Temp Pulse Resp B/P (MAP) Pulse Ox O2 Delivery O2 Flow Rate FiO2 10/12/18 06:00 98.9 73 16 146/66 (92) 92 10/07/18 14:01 Room Air 10/07/18 14:00 98.0 I&O- Last 24 Hours up to 6 AM 10/12/18 06:00 Intake Total 1592 ml Output Total 1200 ml Balance 392 ml SY NIELSEN MD Oct 12, 2018 10:19
[2018-10-12] MEDS: APIXABAN 5 MG TAB (ELIQUIS) PO SCH ×2 (11:00→20:33)
[2018-10-12 14:00] VITALS: BP 131/67
[2018-10-12] MEDS: IBUPROFEN 600 MG TAB PO PRN (16:37)
[2018-10-12 18:00] VITALS: BP 132/63
[2018-10-12 22:00] VITALS: BP 121/59
[2018-10-13] MEDS: MEROPENEM INJ 1 GM in APPROPRIATE DILUENT 1 EA IV SCH ×3 (01:42→17:28)
[2018-10-13] MEDS: ACETAMINOPHEN TAB 650MG DOSE (2X325MG) PO PRN (01:49)
[2018-10-13 02:00] VITALS: BP 138/65
[2018-10-13 05:57] LABS: BASO # 0.1 10^3/uL (0.0-0.2); BASO % 0.4 % (0.0-1.0); EOS # 0.2 10^3/uL (0.0-0.50); EOS % 1.3 % (0.0-3.0); HEMATOCRIT 30.2 % (42.0-52.0); HEMOGLOBIN 10.5 g/dl (13.5-17.5); LYMPH # 2.7 10^3/uL (1.5-4.5); LYMPH % 21.7 % (24.0-44.0); MEAN CORPUSCULAR HGB CONC 34.8 g/dl (32.0-36.5); MEAN CORPUSCULAR VOLUME 86.3 fl (80.0-96.0); MONO # 0.9 10^3/uL (0.0-0.8); MONO % 7.2 % (0.0-5.0); NEUTROPHILS % 65.6 % (36.0-66.0); PLATELET COUNT, AUTOMATED 477 10^3/uL (150-450); WHITE BLOOD COUNT 12.2 10^3/uL (4.0-10.0)
[2018-10-13 06:00] VITALS: BP 132/63
[2018-10-13 06:29] LABS: ALBUMIN 1.8 GM/DL (3.2-5.2); ALT/SGPT 159 U/L (12-78); BLOOD UREA NITROGEN 9 MG/DL (7-18); C REACTIVE PROTEIN QUANTITATIV 8.41 MG/DL (0.00-0.30); CALCIUM LEVEL 8.1 MG/DL (8.8-10.2); CARBON DIOXIDE LEVEL 31 MEQ/L (21-32); CHLORIDE LEVEL 102 MEQ/L (98-107); CREATININE FOR GFR 0.66 MG/DL (0.70-1.30); GLOMERULAR FILTRATION RATE > 60.0 (>49); GLUCOSE, FASTING 107 MG/DL (70-100); LIPASE 195 U/L (73-393); MAGNESIUM LEVEL 2.4 MG/DL (1.8-2.4); POTASSIUM SERUM 3.7 MEQ/L (3.5-5.1); SODIUM LEVEL 138 MEQ/L (136-145); TOTAL PROTEIN 5.9 GM/DL (6.4-8.2)
[2018-10-13] MEDS: APIXABAN 5 MG TAB (ELIQUIS) PO SCH ×2 (08:17→20:10)
[2018-10-13] MEDS: SENOKOT S TAB PO SCH ×2 (08:18→20:10)
[2018-10-13] MEDS: PANTOPRAZOLE 40MG TAB (PROTONIX) PO SCH (08:18)
[2018-10-13] MEDS: valACYclovir HCL 500 MG TAB PO SCH ×2 (08:19→20:11)
[2018-10-13] MEDS: IBUPROFEN 600 MG TAB PO PRN ×2 (08:21→18:44)
[2018-10-13 10:00] VITALS: BP 116/60
[2018-10-13] MEDS ORDERED: ELIQ5TAB PO (11:39)
--- NOTE | 2018-10-13 11:44 | IPNPDOC ---
Text Note Date of Service The patient was seen on 10/13/18. NOTE No acute events overnight. Denies nausea or emesis. Denies SOB, chest pain. He is passing flatus, and is having more formed BMs. No complaints today. VSSAF overnight No fevers since 10/10/18 NAD abd - soft, NT, less distended today labs - below leukocytosis improving as well as LFTs A) 63y/o male with complicated diverticulitis, and septic portal venous thrombus with E.coli bacteremia, and anaerobic bacteremia P)reg diet eliquis motrin ambulate abx ok to shower PICC line today plan on d/c home tomorrow Oniel Bunn DO VS,Fishbone, I+O VS, Fishbone, I+O Laboratory Tests 10/13/18 05:36 Red Blood Count 3.50 L, Mean Corpuscular Volume 86.3, Mean Corpuscular Hemoglobin 30.0, Mean Corpuscular Hemoglobin Concent 34.8, Red Cell Distribution Width 14.9 H, Neutrophils (%) (Auto) 65.6, Lymphocytes (%) (Auto) 21.7 L, Monocytes (%) (Auto) 7.2 H, Eosinophils (%) (Auto) 1.3, Basophils (%) (Auto) 0.4, Neutrophils # (Auto) 8.0 H, Lymphocytes # (Auto) 2.7, Monocytes # (Auto) 0.9 H, Eosinophils # (Auto) 0.2, Basophils # (Auto) 0.1, Calcium Level 8.1 L, Aspartate Amino Transf (AST/SGOT) 107 H, Alanine Aminotransferase (ALT/SGPT) 159 H, Alkaline Phosphatase 420 H, Total Bilirubin 1.0, Total Protein 5.9 L, Albumin 1.8 L Vital Signs Date Time Temp Pulse Resp B/P (MAP) Pulse Ox O2 Delivery O2 Flow Rate FiO2 10/13/18 10:00 97.2 67 17 116/60 (78) 95 10/07/18 14:01 Room Air 10/07/18 14:00 98.0 I&O- Last 24 Hours up to 6 AM 10/13/18 05:59 Intake Total 1246 ml Output Total 1000 ml Balance 246 ml LAURA BUNN DO Oct 13, 2018 11:44
--- NOTE | 2018-10-13 12:48 | IPNPDOC ---
Text Note Date of Service The patient was seen on 10/13/18. NOTE Subjective: Patient is a 63 year old male with a PMHx of SSS s/p PM (06/2018), who presented to the ER after he had an abnormal CT abdomen for abdominal pain he experienced last week (~ 5 days). Patient was admitted to the surgical service for suspected ischemic colitis. Hospitalist were called on consult. Patient was seen and examined at the bedside. Patient notes that his abdominal pain is resolving. Denies any nausea, vomiting, constipation or diarrhea. He is noted that he's been tolerating his diet and is been having regular bowel movements. He denies any chest pain, shortness breath or palpitations. Objective: Vitals (See below) General: Lying in bed, no acute distress, comfortable, AAOx3 HEENT: NC, AT, Philtrum with improvement in scarred lesions CVS: RRR, +S1S2 Lungs: Fair air entry b/l, there does not appear to be any auscultated evidence of rhonchi, rales or wheezing Abdomen: Soft, abdomen, remains nondistended without tenderness Extremities: LE do not reveal any edema, - Calf tenderness Assessment and plan: Recent history of abdominal pain / fever / chills - likely 2/2 intra-abdominal source of infection - possibly 2/2 diverticulitis / infectious colitis - Clinically has had significant improvement; no abdominal tenderness / febrile episodes have subsided - No lactic acidosis; Significant improvement in WBC; CRP continues to trend down - Blood cultures 10/06: E. Coli, Blood cultures 10/07: 1 of 2 bottles with Clostridium Ramosum; Blood cultures 10/10: 1 of 2 bottles with Gram positive rods; Blood cultures 10/12: Pending - CT abdomen / pelvis 10/06: Continued evidence for sigmoid diverticulitis. Small amounts of portal venous gas are now identified in the superior mesenteric vein suggesting the possibility of associated bowel infarction and correlation is required. No free air to suggest perforation. No bowel obstruction. - CT abdomen / pelvis 10/08: Non-occlusive thrombus in the midportion of the portal vein, suspected complete occlusion of inferior mesenteric vein, sigmoid diverticulitis, mild gall-bladder wall thickening, new samll pleural effusions / basilar atelectasis - c/w Meropenem; s/p Ciprofloxacin / Flagyl (Antibiotic day #8); s/p IV fluids - Managed by surgery; ID on consult; appreciate their input - Current plan is to get a PICC line and continuation of Carbapenem (Ertapenem) antibiotics or 10 more days Gram negative bacteremia - See above Thrombosis of superior, inferior mesenteric vein and portal vein - c/w Eliquis; s/p Heparin drip - Dr. Leger on consultation; appreciate their input Elevated Bilirubin / AST / ALT - possibly 2/2 hepatic engorgement 2/2 poor - likely 2/2 thrombosis of superior, inferior mesenteric vein and portal vein - Continues to remain relatively stable - Hepatitis profile (10/04/18) negative - s/p Statin Crackles at b/l lung bases - likely 2/2 atelectasis, less likely 2/2 fluid overload - Patient denies any significant shortness of breath - CXR 10/08: Mild bibasilar fibroatelectatic change without evidence of acute infiltrate or pulmonary edema. 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 - c/w Valacyclovir (Day #5) s/p Hyponatremia (mild) - likely 2/2 hypotonic hypovolemic - Continue with oral hydration s/p Hypokalemia SSS s/p PM GI prophylaxis - c/w Protonix; Will change to PO DVT prophylaxis - c/w Full anticoagulation with Eliquis Disposition: - Plan for PICC line today; 10 days of Ertapenem - Anticipate discharge tomorrow VS,Ron, I+O VS, Ron, I+O Laboratory Tests 10/13/18 05:36 Red Blood Count 3.50 L, Mean Corpuscular Volume 86.3, Mean Corpuscular Hemoglobin 30.0, Mean Corpuscular Hemoglobin Concent 34.8, Red Cell Distribution Width 14.9 H, Neutrophils (%) (Auto) 65.6, Lymphocytes (%) (Auto) 21.7 L, Monocytes (%) (Auto) 7.2 H, Eosinophils (%) (Auto) 1.3, Basophils (%) (Auto) 0.4, Neutrophils # (Auto) 8.0 H, Lymphocytes # (Auto) 2.7, Monocytes # (Auto) 0.9 H, Eosinophils # (Auto) 0.2, Basophils # (Auto) 0.1, Calcium Level 8.1 L, Aspartate Amino Transf (AST/SGOT) 107 H, Alanine Aminotransferase (ALT/SGPT) 159 H, Alkaline Phosphatase 420 H, Total Bilirubin 1.0, Total Protein 5.9 L, Albumin 1.8 L Vital Signs Date Time Temp Pulse Resp B/P (MAP) Pulse Ox O2 Delivery O2 Flow Rate FiO2 10/13/18 10:00 97.2 67 17 116/60 (78) 95 10/07/18 14:01 Room Air 10/07/18 14:00 98.0 I&O- Last 24 Hours up to 6 AM 10/13/18 06:00 Intake Total 1200 ml Output Total 1000 ml Balance 200 ml SY NIELSEN MD Oct 13, 2018 12:48
[2018-10-13 14:00] VITALS: BP 122/68
[2018-10-13] MEDS ORDERED: LIDOCAINE 2% MDV 20 ML VIAL As Ordered ONE (15:24)
[2018-10-13] MEDS ORDERED: SODIUM CHLORIDE 0.9% INJ 10 ML SYR IV PRN (16:30)
[2018-10-13] MEDS ORDERED: ADACEL/BOOSTRIX VACCINE (DIPHTH/PERTUSS/ACELL/TETANUS)0.5ML SYR (90715) IM ONE (16:30)
[2018-10-13] MEDS: SODIUM CHLORIDE 0.9% INJ 10 ML SYR IV SCH (17:28)
--- NOTE | 2018-10-13 17:56 | REP ---
Procedure: PICC line insertion with Farida The procedure was performed under the direct supervision of Dr. Gray. The risks and benefits of the procedure were explained to the patient and informed consent was obtained. The right basilic vein was localized using ultrasound guidance. The skin was prepped and draped in a sterile fashion. 2% lidocaine was used as a local anesthetic. Using ultrasound guidance the basilic vein was cannulated and a 0.018 guidewire was inserted and advanced to the SVC using fluoroscopic guidance. The needle was removed and a 4.5 Dutch dilator and peel-away sheath was inserted over the guide wire. A 4.5 Dutch single lumen catheter was cut to length of 41 cm. The dilator was removed and the catheter was inserted over the guide wire with the tip ending in the SVC. The peel-away sheath was removed and the catheter was flushed with heparinized saline as per Hospital protocol. The catheter was affixed to the skin and a sterile dressing was applied. The patient tolerated the procedure well and there were no immediate complications. 0.2 minutes of fluoro time was utilized for this procedure. Reviewed by SCARLETT Montenegro 10/13/2018 04:04 P Electronically Signed by Jared Gray MD 10/13/2018 05:47 P
--- NOTE | 2018-10-13 20:31 | IPN ---
DATE: 10/13/2018 Geovani is doing much better. He denies any abdominal pain. No nausea or vomiting. His right hip pain and radiculopathy have improved. He has had no fever or chills. He is anxious to go home. Today, he had a peripherally inserted central catheter (PICC) line for home IV antibiotics. He has been afebrile for the past 48 hours. Temperature is 97.2, pulse 67, respirations 16, blood pressure 116/60, oxygen saturation 95% on room air. HEART: Normal S1, S2. No murmurs. LUNGS: Clear. No wheezes, rales, or rhonchi. ABDOMEN: Soft, nontender. No hepatosplenomegaly. BACK: No costovertebral angle (CVA) tenderness. EXTREMITIES: No edema. Right medial ankle with scar and a scab, old. LABORATORY DATA: White count 12.2, hemoglobin 10.5, hematocrit 30.2, platelets 477, 65% neutrophils, 21% lymphocytes, 7% monocytes. Sodium 138, potassium 3.7, chloride 102, bicarbonate 31, BUN 9, creatinine 0.6, glucose 107, calcium 8.1, AST 107, ALT 159, alkaline phosphatase 420, CRP 8.4 down from 15.5. Blood cultures two sets were positive for E-coli on 10/06/2018. Two more sets on 10/07/2018 and 10/10/2018 are positive for gram positive rods with identification of clostridium limosum. 10/12/2018 two sets are negative so far. IMPRESSION: 1. 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 The patient is doing much better on IV meropenem, currently day number seven. The patient will need at least a minimum of two weeks of IV antibiotics, up to four weeks for septic phlebitis. The patient had a peripherally inserted central catheter (PICC) line and will be switched to IV ertapenem. 2. Abnormal liver function tests. These need to be followed up. Most likely due to passive congestion from portal vein thrombosis. The patient is on oral Eliquis. 3. Hip pain with radiculopathy has resolved. Patient with spinal stenosis on CT scan. 4. Herpes simplex, type 1, markedly improved. Valtrex will be discontinued tomorrow. PLAN: I have discussed the case with Carole, charge nurse and Jesus Jackson from [facility] for home IV antibiotics. Prescription has been written for three-week Invanz 1 gram daily. He will have complete blood count (CBC), comprehensive metabolic panel (CMP), sedimentation rate and erythrocyte sedimentation rate (ESR) done weekly. is at the bedside. She was given all the instructions. The patient's last colonoscopy was 11/11/2007. This will need to be repeated once clinically improved to rule out colon cancer as the source of Clostridium as well as causing a hypercoagulable state with portal vein thrombosis.
[2018-10-13 22:00] VITALS: BP 133/60
[2018-10-14 02:00] VITALS: BP 128/62
[2018-10-14] MEDS: SODIUM CHLORIDE 0.9% INJ 10 ML SYR IV SCH (05:54)
[2018-10-14] MEDS: ACETAMINOPHEN TAB 650MG DOSE (2X325MG) PO PRN (05:54)
[2018-10-14 06:00] VITALS: BP 134/66
[2018-10-14] MEDS: SENOKOT S TAB PO SCH (08:38)
[2018-10-14] MEDS: valACYclovir HCL 500 MG TAB PO SCH (08:38)
[2018-10-14] MEDS: APIXABAN 5 MG TAB (ELIQUIS) PO SCH (08:38)
[2018-10-14] MEDS: PANTOPRAZOLE 40MG TAB (PROTONIX) PO SCH (08:38)
[2018-10-14 08:42] LABS: BASO # 0.1 10^3/uL (0.0-0.2); BASO % 0.5 % (0.0-1.0); EOS # 0.1 10^3/uL (0.0-0.50); EOS % 0.8 % (0.0-3.0); LYMPH # 2.8 10^3/uL (1.5-4.5); LYMPH % 20.8 % (24.0-44.0); MEAN CORPUSCULAR HEMOGLOBIN 29.6 pg (27.0-33.0); MEAN CORPUSCULAR HGB CONC 33.3 g/dl (32.0-36.5); MEAN CORPUSCULAR VOLUME 88.7 fl (80.0-96.0); MONO # 0.8 10^3/uL (0.0-0.8); MONO % 5.9 % (0.0-5.0); NEUTROPHILS # 9.4 10^3/uL (1.8-7.7); NEUTROPHILS % 69.7 % (36.0-66.0); PLATELET COUNT, AUTOMATED 666 10^3/uL (150-450); RED BLOOD COUNT 3.72 10^6/uL (4.30-6.10); WHITE BLOOD COUNT 13.5 10^3/uL (4.0-10.0)
[2018-10-14] MEDS ORDERED: ERTAPENEM SODIUM 1 GM in NS MINI-BAG PLUS 50 ML IV SCH (09:00)
[2018-10-14 09:20] LABS: ALBUMIN 2.1 GM/DL (3.2-5.2); ALT/SGPT 161 U/L (12-78); BILIRUBIN,TOTAL 1.1 MG/DL (0.2-1.0); BLOOD UREA NITROGEN 8 MG/DL (7-18); CALCIUM LEVEL 8.2 MG/DL (8.8-10.2); CARBON DIOXIDE LEVEL 30 MEQ/L (21-32); CHLORIDE LEVEL 99 MEQ/L (98-107); CREATININE FOR GFR 0.62 MG/DL (0.70-1.30); GLOMERULAR FILTRATION RATE > 60.0 (>49); GLUCOSE, FASTING 101 MG/DL (70-100); MAGNESIUM LEVEL 2.4 MG/DL (1.8-2.4); POTASSIUM SERUM 4.5 MEQ/L (3.5-5.1); SODIUM LEVEL 137 MEQ/L (136-145); TOTAL PROTEIN 5.9 GM/DL (6.4-8.2)
[2018-10-14 10:00] VITALS: BP 120/58
--- NOTE | 2018-10-14 11:27 | IPNPDOC ---
Text Note Date of Service The patient was seen on 10/14/18. NOTE Subjective: Patient is a 63 year old male with a PMHx of SSS s/p PM (06/2018), who presented to the ER after he had an abnormal CT abdomen for abdominal pain he experienced last week (~ 5 days). Patient was admitted to the surgical service for suspected ischemic colitis. Hospitalist were called on consult. Patient was seen and examined at the bedside. Patient has no concerns this morning. Denies any chest pain, shortness of breath or palpitations. Denies nausea, vomiting, abdominal pain, constipation, diarrhea or discomfort with urination. Objective: Vitals (See below) General: Lying in bed, no acute distress, comfortable, AAOx3 HEENT: NC, AT, Philtrum with improvement in scarred lesions CVS: RRR, +S1S2 Lungs: Fair air entry b/l, there did not appear to be wheezing, rhonchi or rales on auscultation Abdomen: Soft, nondistended, without tenderness Extremities: LE without evidence of edema, - Calf tenderness Assessment and plan: Recent history of abdominal pain / fever / chills - likely 2/2 intra-abdominal source of infection - possibly 2/2 acute diverticulitis / infectious colitis / septic thrombophlebitis - No lactic acidosis; Significant improvement in WBC; CRP continues to trend down - Blood cultures 10/06: E. Coli, Blood cultures 10/07: 1 of 2 bottles with Clostridium Ramosum; Blood cultures 10/10: 1 of 2 bottles with Gram positive rods; Blood cultures 10/12: Pending - CT abdomen / pelvis 10/06: Continued evidence for sigmoid diverticulitis. Small amounts of portal venous gas are now identified in the superior mesenteric vein suggesting the possibility of associated bowel infarction and correlation is required. No free air to suggest perforation. No bowel obstruction. - CT abdomen / pelvis 10/08: Non-occlusive thrombus in the midportion of the portal vein, suspected complete occlusion of inferior mesenteric vein, sigmoid diverticulitis, mild gall-bladder wall thickening, new samll pleural effusions / basilar atelectasis - c/w Meropenem; s/p Ciprofloxacin / Flagyl (Antibiotic day #9); s/p IV fluids - Managed by surgery; ID on consult; appreciate their input - s/p PICC line placement; will c/w Ertapenem for 10 more days as an outpatient infusion Gram negative bacteremia (E. Coli) / Gram positive bacteremia (Clostridium Ramosum) - See above Thrombosis of superior, inferior mesenteric vein and portal vein - possibly 2/2 acute diverticulitis - c/w Eliquis; s/p Heparin drip - Dr. Leger on consultation; appreciate their input Elevated Bilirubin / AST / ALT - possibly 2/2 hepatic engorgement 2/2 poor - likely 2/2 thrombosis of superior, inferior mesenteric vein and portal vein - Continues to remain relatively stable - Hepatitis profile (10/04/18) negative - s/p Statin s/p Crackles at b/l lung bases - likely 2/2 atelectasis, less likely 2/2 fluid overload - CXR 10/08: Mild bibasilar fibroatelectatic change without evidence of acute infiltrate or pulmonary edema. 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 - c/w Valacyclovir (Day #6) s/p Hyponatremia (mild) - likely 2/2 hypotonic hypovolemic - Continue with oral hydration s/p Hypokalemia SSS s/p PM GI prophylaxis - c/w Protonix DVT prophylaxis - c/w Full anticoagulation with Eliquis Disposition: - DC today - c/w Ertapenem for 10 days as outpatient home infusion VS,Ron, I+O VSRon, I+O Laboratory Tests 10/14/18 08:12 Red Blood Count 3.72 L, Mean Corpuscular Volume 88.7, Mean Corpuscular Hemoglobin 29.6, Mean Corpuscular Hemoglobin Concent 33.3, Red Cell Distribution Width 15.0 H, Neutrophils (%) (Auto) 69.7 H, Lymphocytes (%) (Auto) 20.8 L, Monocytes (%) (Auto) 5.9 H, Eosinophils (%) (Auto) 0.8, Basophils (%) (Auto) 0.5, Neutrophils # (Auto) 9.4 H, Lymphocytes # (Auto) 2.8, Monocytes # (Auto) 0.8, Eosinophils # (Auto) 0.1, Basophils # (Auto) 0.1, Calcium Level 8.2 L, Aspartate Amino Transf (AST/SGOT) 90 H, Alanine Aminotransferase (ALT/SGPT) 161 H, Alkaline Phosphatase 460 H, Total Bilirubin 1.1 H, Total Protein 5.9 L, Albumin 2.1 L Vital Signs Date Time Temp Pulse Resp B/P (MAP) Pulse Ox O2 Delivery O2 Flow Rate FiO2 10/14/18 10:00 98.3 57 18 120/58 (78) 97 I&O- Last 24 Hours up to 6 AM 10/14/18 06:00 Intake Total 1490 ml Output Total 775 ml Balance 715 ml SY NIELSEN MD Oct 14, 2018 11:27
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
== END 2018-10-14 12:35 | disposition home or self-care (01) | DRG 871 ==
LOC: M ED 14:36 → M ED INP 20:20 → M MSPAV 22:25
PROVIDERS: ADMIT Surgery; ATTEND Surgery
PROC: 02HV33Z Insertion of Infusion Device into Superior Vena Cava, Percutaneous Approach (ICD-10-PCS; principal; 2018-10-13)
DX: A41.51 Sepsis due to Escherichia coli [E. coli] (principal); I81 Portal vein thrombosis; K57.92 Diverticulitis of intestine, part unspecified, without perforation or abscess without bleeding; E87.1 Hypo-osmolality and hyponatremia; Z88.0 Allergy status to penicillin; Z88.8 Allergy status to other drugs, medicaments and biological substances; Z95.0 Presence of cardiac pacemaker; I49.5 Sick sinus syndrome; Z87.891 Personal history of nicotine dependence; E87.6 Hypokalemia; B02.9 Zoster without complications

== ENCOUNTER → 2018-10-06 | Outpatient (REF) | payer OTHER ==
[~2018-10-06] MED LIST changes: +ACET500T15 PO; +CIPROFLOXACIN 400 MG in APPROPRIATE DILUENT 1 EA IV SCH; +D5W/0.9% SODIUM CHLORIDE 1,000 ML IV SCH; +NS 1,000 ML IV SCH; +VITMTA PO; +metroNIDAZOLE 500 MG in APPROPRIATE DILUENT 1 EA IV SCH
--- NOTE | 2018-10-06 21:35 | CR.PDOC ---
General Date of Consultation: Oct 06, 2018 Referring Provider: LAURA RUSSO DO Consultation REASON FOR CONSULTATION medical management. HISTORY OF PRESENT ILLNESS: Patient is a 63-year-old man with medical history of sick sinus syndrome diagnosed recently June 2018 following syncope and also he is now status post pacemaker placement. Consult is for medical management. Patient is currently being admitted to the surgical unit on account of suspicious finding on abdominal x-ray and CT abdomen which reveals small amount of portal venous gas identified in the superior mesenteric vein suggesting possible bowel infarction unlikely bowel perforation. Patient dates abdominal pain 5 days ago. He presented in the emergency room on the and had an abdominal x-ray unrevealing was discharged with antibiotics for colitis. He reports today and again in the emergency room with same abdominal pains but for further workup for inconclusive x-ray of the abdomen that was done on the . CT scan did show acute diverticulitis. Patient refers subjective fevers and ch ills. No nausea no vomiting. No chest pain or palpitations. No repeat episodes of syncope or near-syncope. No dizziness, no cough, no shortness of breath. No change in his urinary habits. He also denies any night sweats, weight loss, no undue lower extremity swellings or pains. Patient was advised to discontinue atorvastatin due to elevated hepatic enzymes. ALLERGIES: Please see below. HOME MEDICATIONS: Please see below. PAST MEDICAL HISTORY: 1. Sick sinus syndrome. PAST SURGICAL HISTORY: 1. Pacemaker placement June 2018. 2. Surgical repair bilateral ankles. 3. Surgical repair bilateral knees FAMILY HISTORY: Heart disease and stroke runs in the family. 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 Occasional alcohol. Denies illicit drug use REVIEW OF SYSTEMS: No weight loss. No headaches. No change in urinary habits. No nausea no v omiting. No chest pain, no palpitations, no dizziness, no syncope or near- syncope. No cough or shortness of breath other than abdominal pains. Other systems reviewed, -12 point review of system was done. PHYSICAL EXAMINATION: VITAL SIGNS: Please see below. GENERAL APPEARANCE: Middle aged man, lying calmly in bed, not in any apparent distress. He is not pale, anicteric and afebrile HEENT: Atraumatic. Neck: Supple. LUNGS: Clear to auscultation bilaterally. CARDIOVASCULAR: S1 and 2 heard, no murmurs, rubs or gallops. ABDOMEN: Obese, Mildly tense, not tender (feels internal soreness), Mildly distended. Bowel sounds normoactive. MUSCULOSKELETAL: Apparently within normal limits. EXTREMITIES: No pedal edema, 2+ bilateral pedal pulses noted. NEUROLOGICAL: Awake, alert, oriented 3. PSYCHIATRIC: Normal affect LABORATORY DATA: Please see below. EKG: Normal sinus rhythm, no acute ST or T wave noted. ASSESSMENT/PLAN: 1. Abdominal pains. 2. Sick sinus syndrome. RECOMMENDATIONS: 1. Abdominal pains: Likely secondary to acute colitis, but of course keeping in view possibility of bowel infarction with unusual gas pattern in the superior mesenteric vein. Patient may continue with Ciprofloxacillin and Flagyl. He also does appear to have hyponatremia, which may have resulted from poor oral intake. This should improve with volume expansion normal saline to run at 50-75 mils per hour. Reevaluate patient's volume status and needs in the morning and follow with daily BMPs. 2. Sick sinus syndrome with pacemaker placement. EKG reviewed as normal sinus rhythm. Patient appears hemodynamically stable at this time. However, should he require surgery, I would suggest consulting cardiology for optimization. 3. Thank you for this opportunity taking care of the patient. 4. Medicine will follow with you. Laboratory Data Labs 24H Laboratory Tests 2 10/06/18 11:36: Allergies Coded Allergies: Penicillins (Verified Allergy, Unknown, 10/06/18) RASH Tetracycline (Verified Allergy, Unknown, 10/06/18) RASH Home Medications Scheduled Atorvastatin Calcium (Atorvastatin Calcium) 20 Mg Tab, 20 MG PO DAILY, (Reported) ON HOLD PER Multivitamins *[facility] STOCKED* (Thera M Plus *[facility] STOCKED*) 1 Tab Tab, 1 TAB PO DAILY, (Reported) Scheduled PRN Acetaminophen (Acetaminophen) 500 Mg Tab, 500 MG PO Q6H PRN for PAIN, (Reported) DOMINGO REICH MD Oct 06, 2018 21:35
[2018-10-08 10:48] LABS: HEPATITIS A ANTIBODY IGM NEGATIVE (NEGATIVE); HEPATITIS B CORE ANTIBODY IGM NEGATIVE (NEGATIVE); HEPATITIS B SURFACE ANTIGEN NEGATIVE (NEGATIVE); HEPATITIS C VIRUS ABY INDEX 0.1 INDEX (<0.8)
== END ==
LOC: M LAB REF 17:23
PROVIDERS: ATTEND Nurse Practitioner Family
DX: R74.8 Abnormal levels of other serum enzymes (principal)

== ENCOUNTER → 2018-10-17 | Outpatient (CLI) | payer OTHER ==
[~2018-10-17] MED LIST changes: +ACET500T15 PO; +ELIQ5TAB PO; +ISOVUE-370 76% 100ML VIAL (Q9967) As Ordered ONE; +VITMTA PO
--- NOTE | 2018-10-17 16:59 | REP ---
CT of the abdomen and lumbar spine with IV contrast: Dual phase acquisition. Comparison CT abdomen and pelvis study October 09, 2018. History: Portal vein thrombosis. Severe right sacroiliac, groin and leg pain. Diverticulitis. CT contrast dose: 100 ml of intravenous Isovue 370. CT findings: Preliminary digital lithographic general worker radiograph demonstrates an unremarkable bowel gas pattern. Pacemaker is noted in the heart. Lung penn are clear on digital lithographic general worker radiograph and the lung bases are essentially clear on axial CT images. The initial equilibrium phase acquisition of the liver shows mottled contrast enhancement related to the patient's known thrombosis or partial thrombosis of the portal vein. The thrombus in the patria splenic venous confluence has decreased somewhat in size but persists. The portal vein is not occluded. The thrombus has a 7 mm short axis dimension. In the liver, there is occlusive thrombosis of the right posterior intrahepatic portal vein radical. The anterior segment portal vein is patent. There may be partial thrombosis of the left portal vein in the liver as well. These findings are unchanged from the October 09, 2018 study. The inferior mesenteric vein remains thrombosed. It appears a bit smaller in caliber. There is a normal-sized mesenteric lymph node adjacent to the distal portion of the inferior mesenteric vein. This measures 7 mm in greatest diameter. There are two adjacent aortocaval lymph nodes which are also normal in size and also unchanged. The largest of these measures 8 mm x 16 mm x 6.5 mm. These are not enlarged by CT criteria. Small and large bowel loops are unchanged. There is extensive left colonic diverticulosis. No renal mass lesion is seen. Lumbar spine targeted images demonstrate degenerative spondylosis changes. There is moderate central canal stenosis at the L4-5 level due to diffuse disc bulging, ligamentum flavum hypertrophy, and facet hypertrophy. Facet hypertrophy is fairly advanced on the right at L4-5. There is right-sided neural foraminal narrowing at L4-5 due to these factors as well. No paraspinal fluid collection or intraspinal fluid collection is seen. There is minimal disc bulging at L3-4. At L5-S1, there is osteoarthritic facet hypertrophy. There is no CT evidence to suggest bacterial discitis at this point. No bony destructive lesion. Impression: 1. 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 Intrahepatic portal venous thrombosis in the posterior segment right lobe and in the left lobe again noted unchanged. No portal venous gas noted. Left colonic diverticulosis. Inferior mesenteric venous thrombosis persists unchanged. 2. L4-5 moderate central canal stenosis right-sided L4-5 neural foraminal narrowing. No evidence to suggest acute discitis. Findings were telephoned to Dr. Sinha at the time of the study. Electronically Signed by Jared Gray MD 10/17/2018 05:54 P
== END ==
LOC: M RAD 14:47
PROVIDERS: ATTEND Internal Medicine Infectious Disease
DX: K57.33 Diverticulitis of large intestine without perforation or abscess with bleeding (principal)

== ENCOUNTER → 2018-10-20 | Outpatient (REF) | payer OTHER ==
[~2018-10-20] MED LIST changes: +ERTA1INJ3 IV; +GABA-843 PO; -ISOVUE-370 76% 100ML VIAL (Q9967) As Ordered ONE; +MIRA3350 PO; +OXYC-517 PO; +STOO100C PO
[2018-10-20 13:48] LABS: BASO # 0.1 10^3/uL (0.0-0.2); BASO % 1.1 % (0.0-1.0); EOS # 0.1 10^3/uL (0.0-0.50); EOS % 0.9 % (0.0-3.0); HEMATOCRIT 34.6 % (42.0-52.0); HEMOGLOBIN 11.2 g/dl (13.5-17.5); LYMPH # 3.2 10^3/uL (1.5-4.5); LYMPH % 30.4 % (24.0-44.0); MEAN CORPUSCULAR HEMOGLOBIN 28.9 pg (27.0-33.0); MEAN CORPUSCULAR HGB CONC 32.4 g/dl (32.0-36.5); MEAN CORPUSCULAR VOLUME 89.4 fl (80.0-96.0); MONO # 0.6 10^3/uL (0.0-0.8); MONO % 5.8 % (0.0-5.0); NEUTROPHILS # 6.5 10^3/uL (1.8-7.7); PLATELET COUNT, AUTOMATED 822 10^3/uL (150-450); RED BLOOD COUNT 3.87 10^6/uL (4.30-6.10); WHITE BLOOD COUNT 10.6 10^3/uL (4.0-10.0)
[2018-10-20 14:11] LABS: ALBUMIN 2.6 GM/DL (3.2-5.2); ALT/SGPT 82 U/L (12-78); BILIRUBIN,TOTAL 0.6 MG/DL (0.2-1.0); BLOOD UREA NITROGEN 15 MG/DL (7-18); CALCIUM LEVEL 8.8 MG/DL (8.8-10.2); CARBON DIOXIDE LEVEL 29 MEQ/L (21-32); CHLORIDE LEVEL 97 MEQ/L (98-107); CREATININE FOR GFR 0.81 MG/DL (0.70-1.30); GLOMERULAR FILTRATION RATE > 60.0 (>49); GLUCOSE, FASTING 101 MG/DL (70-100); POTASSIUM SERUM 4.8 MEQ/L (3.5-5.1); SODIUM LEVEL 134 MEQ/L (136-145); TOTAL PROTEIN 6.8 GM/DL (6.4-8.2)
[2018-10-20 14:26] LABS: ERYTHROCYTE SEDIMENTATION RATE 75 mm/hr (0-20)
== END ==
LOC: M LAB REF 12:57
PROVIDERS: ATTEND Internal Medicine Infectious Disease
DX: K57.32 Diverticulitis of large intestine without perforation or abscess without bleeding (principal)

== ENCOUNTER → 2018-10-27 | Outpatient (REF) | payer OTHER ==
[2018-10-27 13:26] LABS: BASO # 0.1 10^3/uL (0.0-0.2); BASO % 0.9 % (0.0-1.0); EOS # 0.2 10^3/uL (0.0-0.50); EOS % 2.1 % (0.0-3.0); HEMATOCRIT 35.3 % (42.0-52.0); HEMOGLOBIN 11.3 g/dl (13.5-17.5); LYMPH # 2.8 10^3/uL (1.5-4.5); MEAN CORPUSCULAR HEMOGLOBIN 28.9 pg (27.0-33.0); MEAN CORPUSCULAR VOLUME 90.3 fl (80.0-96.0); MONO # 0.5 10^3/uL (0.0-0.8); MONO % 6.3 % (0.0-5.0); NEUTROPHILS # 4.5 10^3/uL (1.8-7.7); NEUTROPHILS % 55.5 % (36.0-66.0); PLATELET COUNT, AUTOMATED 623 10^3/uL (150-450); RED BLOOD COUNT 3.91 10^6/uL (4.30-6.10); WHITE BLOOD COUNT 8.1 10^3/uL (4.0-10.0)
[2018-10-27 13:44] LABS: ALBUMIN 2.7 GM/DL (3.2-5.2); ALT/SGPT 67 U/L (12-78); BILIRUBIN,TOTAL 0.4 MG/DL (0.2-1.0); BLOOD UREA NITROGEN 13 MG/DL (7-18); CALCIUM LEVEL 8.7 MG/DL (8.8-10.2); CARBON DIOXIDE LEVEL 29 MEQ/L (21-32); CHLORIDE LEVEL 102 MEQ/L (98-107); CREATININE FOR GFR 0.78 MG/DL (0.70-1.30); GLOMERULAR FILTRATION RATE > 60.0 (>49); GLUCOSE, FASTING 106 MG/DL (70-100); POTASSIUM SERUM 4.7 MEQ/L (3.5-5.1); SODIUM LEVEL 138 MEQ/L (136-145); TOTAL PROTEIN 6.7 GM/DL (6.4-8.2)
[2018-10-27 14:16] LABS: ERYTHROCYTE SEDIMENTATION RATE 71 mm/hr (0-20)
[2018-10-30 10:49] LABS: C REACTIVE PROTEIN QUANTITATIV 1.03 MG/DL (0.00-0.30)
== END ==
LOC: M LAB REF 12:58
PROVIDERS: ATTEND Internal Medicine Infectious Disease
DX: R78.81 Bacteremia (principal)

== ENCOUNTER 2018-10-29 07:57 | Day surgery (SDC) | payer OTHER ==
[~2018-10-29] VITALS: Ht 175.3 cm; Wt 82.7 kg
[~2018-10-29 07:57] MED LIST changes: +LIDOCAINE 2% INJ 100 MG/5 ML SDV (FOR ANES.) As Ordered ONE; +NS 1,000 ML IV ONE; +PROPOFOL 200 MG/20 ML VIAL As Ordered ONE
[2018-10-29] MEDS ORDERED: GLYCOPYRROLATE INJ 0.2 MG/ML 2 ML VIAL As Ordered ONE (09:41)
--- NOTE | 2018-10-29 09:56 | ROOR ---
Patient Name: Geovani Mccormack Procedure Date: 10/29/2018 9:18 AM Date of : 1955 Age: 63 Room: [facility] Gender: Male Note Status: Finalized Procedure: Colonoscopy Indications: Follow-up of diverticulitis Providers: Jeremiah Bunn DO Referring MD: Marisol Monk DO Requesting Provider: Medicines: Propofol per Anesthesia Complications: No immediate complications. Procedure: Pre-Anesthesia Assessment: - Prior to the procedure, a History and Physical was performed, and patient medications and allergies were reviewed. The patient is competent. The risks and benefits of the procedure and the sedation options and risks were discussed with the patient. All questions were answered and informed consent was obtained. Patient identification and proposed procedure were verified by the physician, the nurse, the anesthesiologist and the signal maintenance technician in the endoscopy suite. Mental Status Examination: alert and oriented. Airway Examination: normal oropharyngeal airway and neck mobility. Respiratory Examination: clear to auscultation. CV Examination: normal. Prophylactic Antibiotics: The patient does not require prophylactic antibiotics. Prior Anticoagulants: The patient has taken no previous anticoagulant or antiplatelet agents. ASA Grade Assessment: II - A patient with mild systemic disease. After reviewing the risks and benefits, the patient was deemed in satisfactory condition to undergo the procedure. The anesthesia plan was to use monitored anesthesia care (MAC). Immediately prior to administration of medications, the patient was re-assessed for adequacy to receive sedatives. The heart rate, respiratory rate, oxygen saturations, blood pressure, adequacy of pulmonary ventilation, and response to care were monitored throughout the procedure. The physical status of the patient was re-assessed after the procedure. The Colonoscope was introduced through the anus and advanced to the cecum, identified by appendiceal orifice and ileocecal valve. The colonoscopy was performed without difficulty. The patient tolerated the procedure well. Findings: Hemorrhoids were found on perianal exam. Multiple small and large-mouthed diverticula were found in the sigmoid colon and descending colon. The exam was otherwise without abnormality on direct and retroflexion views. Impression: - Hemorrhoids found on perianal exam. - Diverticulosis in the sigmoid colon and in the descending colon. - The examination was otherwise normal on direct and retroflexion views. - No specimens collected. Recommendation: - Patient has a contact number available for emergencies. The signs and symptoms of potential delayed complications were discussed with the patient. Return to normal activities tomorrow. Written discharge instructions were provided to the patient. - Repeat colonoscopy in 5-10 years for screening purposes. - Return to my office in 1 month. Jeremiah Bunn DO 10/29/2018 9:55:53 AM This report has been signed electronically. Number of Addenda: 0 Note Initiated On: 10/29/2018 9:18 AM Estimated Blood Loss: Estimated blood loss: none.
[2018-10-29 10:29] VITALS: BP 126/78
== END 2018-10-29 10:32 | disposition home or self-care (01) ==
LOC: M OPP 07:57
PROVIDERS: ATTEND Surgery
DX: K57.32 Diverticulitis of large intestine without perforation or abscess without bleeding (principal); K64.9 Unspecified hemorrhoids; Z88.0 Allergy status to penicillin; Z88.1 Allergy status to other antibiotic agents; Z79.891 Long term (current) use of opiate analgesic; Z79.899 Other long term (current) drug therapy

== ENCOUNTER → 2018-11-03 | Outpatient (REF) | payer OTHER ==
[~2018-11-03] MED LIST changes: -LIDOCAINE 2% INJ 100 MG/5 ML SDV (FOR ANES.) As Ordered ONE; -NS 1,000 ML IV ONE; -PROPOFOL 200 MG/20 ML VIAL As Ordered ONE
[2018-11-03 13:49] LABS: BASO # 0.1 10^3/uL (0.0-0.2); BASO % 0.8 % (0.0-1.0); EOS # 0.5 10^3/uL (0.0-0.50); EOS % 5.3 % (0.0-3.0); HEMOGLOBIN 11.9 g/dl (13.5-17.5); LYMPH # 3.1 10^3/uL (1.5-4.5); LYMPH % 34.2 % (24.0-44.0); MEAN CORPUSCULAR HEMOGLOBIN 28.7 pg (27.0-33.0); MEAN CORPUSCULAR HGB CONC 32.2 g/dl (32.0-36.5); MEAN CORPUSCULAR VOLUME 89.4 fl (80.0-96.0); MONO # 0.6 10^3/uL (0.0-0.8); MONO % 6.4 % (0.0-5.0); NEUTROPHILS # 4.9 10^3/uL (1.8-7.7); PLATELET COUNT, AUTOMATED 461 10^3/uL (150-450); RED BLOOD COUNT 4.14 10^6/uL (4.30-6.10); WHITE BLOOD COUNT 9.2 10^3/uL (4.0-10.0)
[2018-11-03 14:13] LABS: ERYTHROCYTE SEDIMENTATION RATE 54 mm/hr (0-20)
[2018-11-03 14:20] LABS: ALT/SGPT 82 U/L (12-78); BILIRUBIN,TOTAL 0.5 MG/DL (0.2-1.0); BLOOD UREA NITROGEN 13 MG/DL (7-18); CALCIUM LEVEL 8.8 MG/DL (8.8-10.2); CARBON DIOXIDE LEVEL 29 MEQ/L (21-32); CHLORIDE LEVEL 104 MEQ/L (98-107); CREATININE FOR GFR 0.79 MG/DL (0.70-1.30); GLOMERULAR FILTRATION RATE > 60.0 (>49); GLUCOSE, FASTING 77 MG/DL (70-100); POTASSIUM SERUM 4.4 MEQ/L (3.5-5.1); SODIUM LEVEL 141 MEQ/L (136-145); TOTAL PROTEIN 6.8 GM/DL (6.4-8.2)
== END ==
LOC: M LAB REF 13:33
PROVIDERS: ATTEND Internal Medicine Infectious Disease
DX: Z51.81 Encounter for therapeutic drug level monitoring (principal)

== ENCOUNTER → 2018-11-11 | Outpatient (REF) | payer OTHER ==
[2018-11-11 15:50] LABS: BASO # 0.1 10^3/uL (0.0-0.2); EOS # 0.5 10^3/uL (0.0-0.50); EOS % 4.9 % (0.0-3.0); HEMATOCRIT 39.2 % (42.0-52.0); HEMOGLOBIN 12.7 g/dl (13.5-17.5); LYMPH % 30.1 % (24.0-44.0); MEAN CORPUSCULAR HEMOGLOBIN 28.5 pg (27.0-33.0); MEAN CORPUSCULAR HGB CONC 32.4 g/dl (32.0-36.5); MEAN CORPUSCULAR VOLUME 88.1 fl (80.0-96.0); MONO # 0.6 10^3/uL (0.0-0.8); MONO % 5.6 % (0.0-5.0); NEUTROPHILS # 5.8 10^3/uL (1.8-7.7); NEUTROPHILS % 58.1 % (36.0-66.0); PLATELET COUNT, AUTOMATED 373 10^3/uL (150-450); RED BLOOD COUNT 4.45 10^6/uL (4.30-6.10); WHITE BLOOD COUNT 9.9 10^3/uL (4.0-10.0)
[2018-11-11 16:19] LABS: ERYTHROCYTE SEDIMENTATION RATE 58 mm/hr (0-20)
[2018-11-11 16:20] LABS: ALBUMIN 3.1 GM/DL (3.2-5.2); ALT/SGPT 68 U/L (12-78); BILIRUBIN,TOTAL 0.4 MG/DL (0.2-1.0); BLOOD UREA NITROGEN 17 MG/DL (7-18); C REACTIVE PROTEIN QUANTITATIV 0.48 MG/DL (0.00-0.30); CALCIUM LEVEL 8.3 MG/DL (8.8-10.2); CARBON DIOXIDE LEVEL 29 MEQ/L (21-32); CHLORIDE LEVEL 105 MEQ/L (98-107); CREATININE FOR GFR 0.78 MG/DL (0.70-1.30); GLOMERULAR FILTRATION RATE > 60.0 (>49); GLUCOSE, FASTING 98 MG/DL (70-100); POTASSIUM SERUM 4.3 MEQ/L (3.5-5.1); SODIUM LEVEL 141 MEQ/L (136-145); TOTAL PROTEIN 6.8 GM/DL (6.4-8.2)
== END ==
LOC: M LABDRWAD 15:36
PROVIDERS: ATTEND Internal Medicine Infectious Disease
DX: K57.92 Diverticulitis of intestine, part unspecified, without perforation or abscess without bleeding (principal); K55.9 Vascular disorder of intestine, unspecified

== ENCOUNTER → 2018-11-13 | Outpatient (REF) | payer OTHER ==
[2018-11-13 13:14] LABS: INR 1.21; PROTHROMBIN TIME 15.5 SECONDS (12.1-14.4)
[2018-11-13 13:15] LABS: PARTIAL THROMBOPLASTIN TIME 46.8 SECONDS (25.4-37.6)
== END ==
LOC: M LABDRAW1 12:34
PROVIDERS: ATTEND Physician Assistant
DX: Z01.812 Encounter for preprocedural laboratory examination (principal)

== ENCOUNTER → 2018-11-26 | Outpatient (CLI) | payer OTHER ==
[2018-11-26 13:33] LABS: INR 1.23; PROTHROMBIN TIME 15.7 SECONDS (12.1-14.4)
[2018-11-26 14:06] LABS: ALBUMIN 3.6 GM/DL (3.2-5.2); ALT/SGPT 65 U/L (12-78); BILIRUBIN,DIRECT 0.2 MG/DL (0.0-0.2); BILIRUBIN,TOTAL 0.6 MG/DL (0.2-1.0); FERRITIN 246 NG/ML (26-388); HEPATITIS B SURFACE ANTIBODY NEGATIVE (POSITIVE); IRON (FE) 89 UG/DL (65-175); PERCENT SATURATION 29.7 % (19.7-50.0); TOTAL IRON BINDING CAPACITY 300 UG/DL (250-450); TOTAL PROTEIN 7.3 GM/DL (6.4-8.2)
[2018-11-26 14:46] LABS: HEPATITIS A ANTIBODY IGM NEGATIVE (NEGATIVE)
[2018-11-26 16:34] LABS: HEPATITIS B SURFACE ANTIGEN NEGATIVE (NEGATIVE)
[2018-11-27 10:33] LABS: ALBUMIN 4.12 GM/DL (3.29-5.55); ALBUMIN % 56.4 % (55.8-66.1); ALPHA-1-GLOBULIN % 4.6 % (2.9-4.9); ALPHA-1-GLOBULINS 0.34 GM/DL (0.17-0.41); ALPHA-2-GLOBULINS 0.85 GM/DL (0.42-0.99); ALPHA-2-GLOBULINS % 11.6 % (7.1-11.8); BETA-1-GLOBULINS 0.45 GM/DL (0.28-0.60); BETA-1-GLOBULINS % 6.2 % (4.7-7.2)
[2018-11-27 10:34] LABS: BETA-2-GLOBULINS 0.43 GM/DL (0.19-0.55); BETA-2-GLOBULINS % 5.9 % (3.2-6.5); GAMMA GLOBULIN % 15.3 % (11.1-18.8); GAMMA GLOBULINS 1.12 GM/DL (0.65-1.58)
[2018-11-28 00:09] LABS: ALPHA 1 ANTITRYPSIN 152 mg/dL (90-200); ANTI-MITOCHONDRIAL ANTIBODY <20.0 Units (0.0-20.0); ANTI-SMOOTH MUSCLE ANTIBODY 7 Units (0-19); ANTINUCLEAR ANTIBODIES DIRECT Negative (Negative); HEPATITIS A IgG TOTAL Negative (Negative); LIVER-KIDNEY MICROSOMAL ABY <20.1 Units (0.0-20.0); TISSUE TRANSGLUTAMINASE IgA <2 U/mL (0-3); TISSUE TRANSGLUTAMINASE IgG <2 U/mL (0-5)
== END ==
LOC: M LAB 12:16
PROVIDERS: ATTEND Internal Medicine Gastroenterology
DX: R94.5 Abnormal results of liver function studies (principal); K57.30 Diverticulosis of large intestine without perforation or abscess without bleeding

== ENCOUNTER → 2019-01-22 | Outpatient (REF) | payer OTHER | LOC: M LAB REF 12:47 | PROVIDERS: ATTEND Internal Medicine | DX: R41.3 Other amnesia (principal) ==

== ENCOUNTER → 2019-06-19 | Outpatient (REF) | payer OTHER ==
[~2019-06-19] MED LIST changes: +MM S100C PO; -STOO100C PO
== END ==
LOC: M LAB REF 16:59
PROVIDERS: ATTEND Internal Medicine
DX: D51.9 Vitamin B12 deficiency anemia, unspecified (principal)

== ENCOUNTER → 2020-03-10 | Outpatient (CLI) | payer OTHER ==
[2020-03-10 09:58] LABS: PLATELET COUNT, AUTOMATED 330 10^3/uL (150-450)
[2020-03-10 10:09] LABS: PROTHROMBIN TIME 12.9 SECONDS (11.8-14.0)
[2020-03-10 10:10] LABS: PARTIAL THROMBOPLASTIN TIME 30.2 SECONDS (25.0-38.4)
[2020-03-10 10:24] LABS: COLLAGEN EPINEPHRINE 99 SECONDS (74-162)
== END ==
LOC: M LAB 09:20
PROVIDERS: ATTEND Physical Medicine & Rehabilitation
DX: M47.816 Spondylosis without myelopathy or radiculopathy, lumbar region (principal)

== ENCOUNTER → 2020-03-31 | Outpatient (CLI) | payer OTHER ==
[2020-03-31 11:24] LABS: PLATELET COUNT, AUTOMATED 277 10^3/uL (150-450)
[2020-03-31 11:35] LABS: PROTHROMBIN TIME 12.9 SECONDS (11.8-14.0)
[2020-03-31 11:36] LABS: PARTIAL THROMBOPLASTIN TIME 30.3 SECONDS (25.0-38.4)
== END ==
LOC: M LAB 10:52
PROVIDERS: ATTEND Physical Medicine & Rehabilitation
DX: Z01.812 Encounter for preprocedural laboratory examination (principal)

== ENCOUNTER → 2020-03-31 | Outpatient (CLI) | payer OTHER | LOC: M LABSMTC 10:15 | PROVIDERS: ATTEND Orthopaedic Surgery | DX: Z11.59 Encounter for screening for other viral diseases (principal) ==

== ENCOUNTER → 2020-05-29 | Outpatient (CLI) | payer OTHER | LOC: M LABSMTC 08:42 | PROVIDERS: ATTEND Physical Medicine & Rehabilitation | DX: Z20.828 Contact with and (suspected) exposure to other viral communicable diseases (principal) ==

== ENCOUNTER → 2020-08-27 | Outpatient (CLI) | payer SELFPAY | LOC: M LABSMTC 08:06 | PROVIDERS: ATTEND Pediatrics | DX: Z20.828 Contact with and (suspected) exposure to other viral communicable diseases (principal) ==

== ENCOUNTER → 2020-11-08 | Outpatient (CLI) | payer SELFPAY ==
[~2020-11-08] MED LIST changes: +GABA-282 PO; -GABA-843 PO
== END ==
LOC: M LABSMTC 09:56
PROVIDERS: ATTEND Pediatrics
DX: Z11.52 Encounter for screening for COVID-19 (principal)

== ENCOUNTER → 2020-12-29 | Outpatient (REF) | payer OTHER | LOC: M LAB REF 16:21 | PROVIDERS: ATTEND Internal Medicine | DX: D51.9 Vitamin B12 deficiency anemia, unspecified (principal) ==

== ENCOUNTER → 2023-02-21 | Outpatient (REF) | payer MEDICARE, OTHER | LOC: M LAB REF 16:29 | PROVIDERS: ATTEND Internal Medicine | DX: D51.9 Vitamin B12 deficiency anemia, unspecified (principal) ==

== ENCOUNTER → 2024-05-29 | Outpatient (REF) | payer MEDICARE, OTHER | LOC: M LAB REF 12:54 | PROVIDERS: ATTEND Internal Medicine | DX: D51.9 Vitamin B12 deficiency anemia, unspecified (principal) ==

== ENCOUNTER → 2024-07-23 | Outpatient (CLI) | payer MEDICARE, OTHER ==
[~2024-07-23] MED LIST changes: +GABA-1172 PO; -GABA-282 PO
== END ==
LOC: M WUC 10:13
PROVIDERS: ATTEND Student in an Organized Health Care Education/Training Program
DX: M79.671 Pain in right foot (principal); M85.861 Other specified disorders of bone density and structure, right lower leg